=== PATIENT | female | born 1950 | race Caucasian/White ===

== ENCOUNTER 2018-01-14 07:07 | Day surgery (SDC) | payer MEDICARE, OTHER ==
[~2018-01-14] VITALS: Ht 170.2 cm; Wt 83.1 kg
[~2018-01-14 07:07] MED LIST: ATOR80 PO; Adult Low Dose81 MG PO; BUPROPION HCL ER PO; MIRT15ST PO; Omeprazole20 M1 PO; Prozac20 MG PO; TICA90TA PO; Toprol Xl25 MG PO
== END 2018-01-14 09:25 | disposition home or self-care (01) ==
LOC: ORSCSDS 07:07
PROVIDERS: Internal Medicine Gastroenterology
PROC: 0DB68ZX Excision of Stomach, Via Natural or Artificial Opening Endoscopic, Diagnostic (ICD-10-PCS; principal; 2018-01-14 08:45)
DX: K21.9 Gastro-esophageal reflux disease without esophagitis (principal); K20.9 Esophagitis, unspecified; K44.9 Diaphragmatic hernia without obstruction or gangrene; K31.9 Disease of stomach and duodenum, unspecified; I10 Essential (primary) hypertension; E78.5 Hyperlipidemia, unspecified; Z87.891 Personal history of nicotine dependence; Z79.82 Long term (current) use of aspirin; Z79.899 Other long term (current) drug therapy
CPT/HCPCS: 88305; 88342; J0330; J1980; J2405; J7120

== ENCOUNTER → 2018-05-03 | Outpatient (CLI) | payer MEDICARE, OTHER | END | disposition home or self-care (01) | LOC: LAB 14:45 → LAB SHORT 14:45 | DX: N39.0 Urinary tract infection, site not specified (principal) | CPT/HCPCS: 87077; 87086; 87186 ==

== ENCOUNTER → 2018-09-26 | Outpatient (CLI) | payer MEDICARE, OTHER | END | disposition home or self-care (01) | LOC: LAB SHORT 14:56 → LAB EV 14:56 | DX: N39.0 Urinary tract infection, site not specified (principal) | CPT/HCPCS: 87077; 87086; 87186 ==

== ENCOUNTER → 2019-06-21 | Outpatient (CLI) | payer MEDICARE, OTHER | END | disposition home or self-care (01) | LOC: LAB SHORT 15:10 → OLS 15:10 | DX: R30.9 Painful micturition, unspecified (principal) | CPT/HCPCS: 87086 ==

== ENCOUNTER → 2020-02-05 | Outpatient (CLI) | payer MEDICARE, OTHER | END | disposition home or self-care (01) | LOC: LAB SHORT 15:00 → LAB EV 15:00 | DX: N39.0 Urinary tract infection, site not specified (principal) | CPT/HCPCS: 87077; 87086; 87186 ==

== ENCOUNTER → 2020-06-21 | Outpatient (CLI) | payer MEDICARE, OTHER | END | disposition home or self-care (01) | LOC: LAB SHORT 17:36 → LAB EV 17:36 | DX: J01.90 Acute sinusitis, unspecified (principal); Z20.828 Contact with and (suspected) exposure to other viral communicable diseases | CPT/HCPCS: U0003 ==

== ENCOUNTER → 2021-04-04 | Outpatient (CLI) | payer MEDICARE, OTHER | END | disposition home or self-care (01) | LOC: LAB SHORT 19:45 → LAB 19:45 | DX: N39.0 Urinary tract infection, site not specified (principal) | CPT/HCPCS: 87077; 87086; 87186 ==

== ENCOUNTER → 2021-05-16 | Outpatient (CLI) | payer MEDICARE, OTHER | END | disposition home or self-care (01) | LOC: LAB 16:24 → LAB SHORT 16:24 | DX: N39.0 Urinary tract infection, site not specified (principal) | CPT/HCPCS: 87077; 87086; 87186 ==

== ENCOUNTER → 2021-07-24 | Outpatient (CLI) | payer MEDICARE, OTHER | END | disposition home or self-care (01) | LOC: LAB SHORT 17:13 → LAB 17:13 | DX: N39.0 Urinary tract infection, site not specified (principal) | CPT/HCPCS: 87077; 87086; 87186 ==

== ENCOUNTER 2021-10-06 10:42 | Inpatient (IN) | payer MEDICARE, OTHER ==
[~2021-10-06] VITALS: Ht 170.2 cm; Wt 74.9 kg
[2021-10-06 11:23] LABS: Alanine Aminotransfer (ALT/SGP 27 U/L (12-78); Albumin, Blood 2.5 g/dL (3.4-5.0); Albumin/Globulin Ratio 0.5 (0.8-1.8); Alk Phos 164 U/L (50-136); Anion Gap 10 mmol/L (6-16); Aspartate Aminotrans (AST/SGOT 58 U/L (12-37); Bilirubin, Total 0.7 mg/dL (0.1-1.0); Blood Urea Nitrogen 11 mg/dL (8-24); Bun/Creatinine Ratio 14.3 (12.0-20.0); CO2, Blood 24 mmol/L (21-32); Calcium, Blood 8.4 mg/dL (8.5-10.1); Chloride, Blood 107 mmol/L (98-108); Creatinine, Blood 0.77 mg/dL (0.40-1.00); Globulin, Blood 4.8 g/dL (2.2-4.0); Glomerular Filtration Rate >60 (60-); Glucose, Blood 119 mg/dL (70-99); Potassium, Blood 3.8 mmol/L (3.5-5.5); Sodium, Blood 141 mmol/L (136-145); Total Protein, Blood 7.3 g/dL (6.4-8.2); Troponin I 0.023 ng/mL (0.000-0.040)
[2021-10-06 11:34] LABS: BASOPHILS ABSOLUTE AUTO 0.04 K/mm3 (0.00-0.23); BASOPHILS PERCENT AUTO 0 % (0-2); EOSINOPHILS ABSOLUTE AUTO 0.09 K/mm3 (0.00-0.68); EOSINOPHILS PERCENT AUTO 1 % (0-6); Hematocrit 37.2 % (33.0-51.0); Hemoglobin 12.1 g/dL (11.5-16.0); IMMATURE GRAN ABSOLUTE AUTO 0.08 K/mm3 (0.00-0.10); IMMATURE GRAN PERCENT AUTO 1 % (0-1); LYMPHOCYTES ABSOLUTE AUTO 1.16 K/mm3 (0.84-5.20); LYMPHOCYTES PERCENT AUTO 11 % (21-46); MONOCYTES ABSOLUTE AUTO 0.74 K/mm3 (0.16-1.47); MONOCYTES PERCENT AUTO 7 % (4-13); Mean Corpuscular HGB 30.5 pg (26.0-34.0); Mean Corpuscular HGB Conc 32.5 g/dL (31.5-36.5); Mean Corpuscular Volume 94 fL (80-100); Mean Platelet Volume 9.7 fL (9.1-12.4); NEUTROPHILS ABSOLUTE AUTO 8.93 K/mm3 (1.96-9.15); NEUTROPHILS PERCENT AUTO 81 % (41-73); Platelet Count 352 K/mm3 (150-400); RDW Coefficient Variation 15.3 % (11.7-14.2); Red Blood Cell Count 3.97 M/mm3 (3.80-5.20); White Blood Cell Count 11.04 K/mm3 (4.00-11.30)
[2021-10-06 11:57] LABS: Influenza A, PCR NEGATIVE (NEGATIVE); Influenza B, PCR NEGATIVE (NEGATIVE); Resp Syncytial Virus, PCR NEGATIVE (NEGATIVE); SARS-Cov-2 (COVID-19) PCR, MMC NEGATIVE (NEGATIVE)
[2021-10-06] MEDS ORDERED: ASPI81CH PO (15:23)
[2021-10-06] MEDS ORDERED: ATORVASTATIN CA80 M1 PO (15:24)
[2021-10-06] MEDS ORDERED: WELLBUTRIN 300 MG PO (15:25)
[2021-10-06] MEDS ORDERED: FLUOXETINE HCL20 M1 PO (15:26)
[2021-10-06] MEDS ORDERED: METO25ER PO (15:27)
[2021-10-06] MEDS ORDERED: PANT40 PO (15:29)
[2021-10-06] MEDS ORDERED: CARAFATE1 GM PO (15:30)
[2021-10-06] MEDS ORDERED: ASPI325 PO (17:10)
--- NOTE | 2021-10-06 18:13 | NUR ---
2722 RECEIVED PT TO VIA JEAN FROM ER. PT ABLE TO TX SELF TO BED WITH SBA. RECEIVED REPORT FROM CALDERON LUCAS. PT TO ER WITH C/O SOB, N/V; MOSTLY D/T COUGHING EPISODES. PER REPORT, PT'S BIOX AT 82% COMING TO ER; PLACED ON 2L VIA NC. BIOX INCREASED TO 94-95%. PT UP TO BTHRM ONCE IN ER, BECOMING SOB ON RETURN. PT WITH STAGE 4 LUNG CA, RECEIVING TX. PT ADMITTED FOR HYPOXIA. A&O, PLEASANT AND CO-OP WITH CARE. TALKING ON PHONE WITH FAMILY AT THIS TIME. CALL LT IN REACH. ABLE TO MAKE NEEDS KNOWN.
--- NOTE | 2021-10-07 03:46 | NUR ---
SHIFT SUMMARY A/O X4. STAND BY ASSIST TO BATHROOM. VSS, REMAINS ON 2L NC. INCREASED SOB WITH MINIMAL ACTIVITY. TOLERATING PO INTAKE. VOIDING WELL. ANXIOUS WHEN AWAKE TO USE THE BATHROOM, BUT OTHERWISE RESTING COMFORTABLE. NO PAIN THIS SHIFT. WILL CONTINUE TO MONITOR AND REPORT TO ONCOMING RN.
[2021-10-07 07:31] LABS: BASOPHILS ABSOLUTE AUTO 0.05 K/mm3 (0.00-0.23); BASOPHILS PERCENT AUTO 1 % (0-2); EOSINOPHILS ABSOLUTE AUTO 0.13 K/mm3 (0.00-0.68); EOSINOPHILS PERCENT AUTO 1 % (0-6); Hematocrit 33.2 % (33.0-51.0); Hemoglobin 10.7 g/dL (11.5-16.0); IMMATURE GRAN PERCENT AUTO 1 % (0-1); LYMPHOCYTES ABSOLUTE AUTO 1.14 K/mm3 (0.84-5.20); LYMPHOCYTES PERCENT AUTO 11 % (21-46); MONOCYTES ABSOLUTE AUTO 0.62 K/mm3 (0.16-1.47); MONOCYTES PERCENT AUTO 6 % (4-13); Mean Corpuscular HGB 30.2 pg (26.0-34.0); Mean Corpuscular HGB Conc 32.2 g/dL (31.5-36.5); Mean Corpuscular Volume 94 fL (80-100); Mean Platelet Volume 9.5 fL (9.1-12.4); NEUTROPHILS ABSOLUTE AUTO 8.52 K/mm3 (1.96-9.15); NEUTROPHILS PERCENT AUTO 81 % (41-73); Platelet Count 287 K/mm3 (150-400); RDW Coefficient Variation 15.2 % (11.7-14.2); RDW Standard Deviation 52.5 fL (35.1-46.3); Red Blood Cell Count 3.54 M/mm3 (3.80-5.20); White Blood Cell Count 10.56 K/mm3 (4.00-11.30)
[2021-10-07 07:36] LABS: Albumin, Blood 2.3 g/dL (3.4-5.0); Anion Gap 9 mmol/L (6-16); Blood Urea Nitrogen 14 mg/dL (8-24); Bun/Creatinine Ratio 20.7 (12.0-20.0); CO2, Blood 23 mmol/L (21-32); Calcium, Blood 8.3 mg/dL (8.5-10.1); Chloride, Blood 106 mmol/L (98-108); Creatinine, Blood 0.68 mg/dL (0.40-1.00); Glomerular Filtration Rate >60 (60-); Glucose, Blood 158 mg/dL (70-99); Magnesium, Blood 2.4 mg/dL (1.6-2.4); Phosphorus, Blood 2.3 mg/dL (2.5-4.9); Potassium, Blood 4.1 mmol/L (3.5-5.5); Sodium, Blood 138 mmol/L (136-145)
--- NOTE | 2021-10-07 09:59 | NUR ---
Echocardiogram performed.
--- NOTE | 2021-10-07 12:14 | NUR ---
I went up to visit the patient in her [facility] room 301. She was currently receiving a breathing treatment but, was able to answer my questions. She currently lives alone in a fifth wheel, with 3 steps to the enterance. She states she is close with her neighbors and her neighbor, Charmaine Perez [phone] can be used as an emergency contact. Pt states Charmaine can also be contacted for discharge transportation. She states her neighbors also help with transportation if needed. Aurora was independent prior to admit and does not own any durable medical equipment. Her preference on home health is [facility]. She manages all her own medications and states she does not need assistance with ADLs prior to admit. Her SNF preference is [facility]. She does not have benefits. She also states her son can be contacted (Brodie [phone]) who lives in [place].
--- NOTE | 2021-10-07 12:19 | NUR ---
Per OT evaulation - discharge recommendation is home with/HH. PT yet to evaluate patient yet. See PT Note. I notified Yisel Stratton of patient's preference for [facility].
--- NOTE | 2021-10-07 16:54 | NUR ---
SHIFT SUMMARY PT IS A&O, PLEASANT AND CO-OP. SOB WITH EXERTION, BUT IMPROVED FROM ADMIT. PT HAS SOME HIGH ANXIETY AT TIMES, APART FROM ANY BREATHING ISSUES. UP TO BTHRM WITH SBA. DRINKING WELL. PICKY WITH MEALS, BUT LIKES ENSURES. RESTING QUIETLY THRU OUT THE DAY. ECHO DONE IN THIS AM. USES CALL LT APPROPRIATELY. ABLE TO MAKE NEEDS KNOWN.
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
--- NOTE | 2021-10-08 07:30 | NUR ---
ASSUMED CARE: PT RESTING QUIETLY IN BED, CURRENTLY ON 13L AT THIS TIME. SATTING LOW 90S.
[2021-10-08 08:35] LABS: BASOPHILS ABSOLUTE AUTO 0.04 K/mm3 (0.00-0.23); BASOPHILS PERCENT AUTO 0 % (0-2); EOSINOPHILS ABSOLUTE AUTO 0.01 K/mm3 (0.00-0.68); EOSINOPHILS PERCENT AUTO 0 % (0-6); Hematocrit 36.5 % (33.0-51.0); IMMATURE GRAN ABSOLUTE AUTO 0.11 K/mm3 (0.00-0.10); IMMATURE GRAN PERCENT AUTO 1 % (0-1); LYMPHOCYTES ABSOLUTE AUTO 0.94 K/mm3 (0.84-5.20); LYMPHOCYTES PERCENT AUTO 8 % (21-46); MONOCYTES ABSOLUTE AUTO 0.23 K/mm3 (0.16-1.47); MONOCYTES PERCENT AUTO 2 % (4-13); Mean Corpuscular HGB 30.7 pg (26.0-34.0); Mean Corpuscular HGB Conc 32.9 g/dL (31.5-36.5); Mean Corpuscular Volume 93 fL (80-100); Mean Platelet Volume 9.7 fL (9.1-12.4); NEUTROPHILS ABSOLUTE AUTO 10.16 K/mm3 (1.96-9.15); NEUTROPHILS PERCENT AUTO 88 % (41-73); NRBC ABSOLUTE 0.02 K/mm3 (0.00-0.02); NRBC Auto 0.2 /100 WBC (0.0-0.2); Platelet Count 297 K/mm3 (150-400); RDW Coefficient Variation 15.3 % (11.7-14.2); RDW Standard Deviation 52.7 fL (35.1-46.3); Red Blood Cell Count 3.91 M/mm3 (3.80-5.20); White Blood Cell Count 11.49 K/mm3 (4.00-11.30)
[2021-10-08 09:10] LABS: Magnesium, Blood 2.2 mg/dL (1.6-2.4)
[2021-10-08 09:11] LABS: Alanine Aminotransfer (ALT/SGP 24 U/L (12-78); Albumin, Blood 2.4 g/dL (3.4-5.0); Albumin/Globulin Ratio 0.6 (0.8-1.8); Alk Phos 185 U/L (50-136); Anion Gap 9 mmol/L (6-16); Aspartate Aminotrans (AST/SGOT 76 U/L (12-37); Bilirubin, Total 0.9 mg/dL (0.1-1.0); Blood Urea Nitrogen 19 mg/dL (8-24); Bun/Creatinine Ratio 21.7 (12.0-20.0); CO2, Blood 26 mmol/L (21-32); Calcium, Blood 8.4 mg/dL (8.5-10.1); Chloride, Blood 103 mmol/L (98-108); Creatinine, Blood 0.88 mg/dL (0.40-1.00); Globulin, Blood 3.9 g/dL (2.2-4.0); Glomerular Filtration Rate >60 (60-); Glucose, Blood 126 mg/dL (70-99); Potassium, Blood 4.5 mmol/L (3.5-5.5); Sodium, Blood 138 mmol/L (136-145); Total Protein, Blood 6.3 g/dL (6.4-8.2)
--- NOTE | 2021-10-08 09:30 | NUR ---
CONSUMER ELECTRONICS MERCHANDISER CALLED RN TO BEDSIDE DUE TO PT BEING ON 13L AND SATTING AT 88%. INCREASED O2 TO [address] WOO. SEE VERBAL ORDERS
[2021-10-08 09:33] LABS: Troponin I 0.528 ng/mL (0.000-0.040)
--- NOTE | 2021-10-08 10:30 | NUR ---
DR WOO REVIEWED LAB RESULTS AND CONTACTED CARDIOLOGY TO REVIEW RESULTS AND ORDERS AND TO GIVE RECOMMENDATIONS.
[2021-10-08 10:56] LABS: International Normalized Ratio 1.21; Prothrombin Time Results 12.5 Sec (9.7-11.5)
--- NOTE | 2021-10-08 12:14 | NUR ---
Received referral from nurse transitional care nurse (Danii Laureano) on 10/07/2021. Patient is to discharge with orders for home health and elected [facility]. Met with patient to further discuss the above. Patient is agreeable to the above. Discussed homebound status definition with patient. Patient verbalized understanding. Discussed what home health is vs what it is not (in home caregivers/housekeeping). Patient verbalized understanding. Discussed the next steps in the process of an initial assessment to determine frequency of visits. Again patient verbalized understanding. Offered a chance for patient to ask questions regarding the above of which there were none. At this time patient has no discharge orders entered. Will continue to monitor and follow for discharge. Yisel Stratton Referral Liaison
--- NOTE | 2021-10-08 13:00 | NUR ---
DR HASSAN CAME TO SEE PT AND DOES NOT FEEL THAT PT'S ISSUES ARE DIRECTLY CARDIAC AND MORE LIKELY DEMAND ISCHEMIA. STATES PT IS TOO SHORT OF BREATH FOR CARDIAC CATH TO BE COMPLETED AND WILL MEDICALLY MANAGE AT THIS TIME.
[2021-10-08 13:37] LABS: Source, Urine Clean Catch
[2021-10-08 13:42] LABS: Appearance, Urine Clear (Clear); Bilirubin, Urine Neg (Neg); Blood, Urine 1+ (Neg); Glucose Qualitative, Urine Neg (Neg); Ketones, Urine Neg (Neg); Leukocyte Esterase, Urine 3+ (Neg); Nitrite, Urine Neg (Neg); Protein, Urine 2+ (Neg); Urobilinogen, Urine NORM (Normal)
[2021-10-08 13:58] LABS: Color, Urine Pale Yellow (P-Yellow)
[2021-10-08 14:02] LABS: Bacteria Mod /hpf; Hyaline Casts 0-2 /lpf (0-2); Mucus Light (0-Heavy); Red Blood Cells, Urine 0-2 /hpf (0-2); Squamous Epithelial Cells Rare /hpf (Few)
--- NOTE | 2021-10-08 14:57 | NUR ---
Pt. in bed resting , prayed for her and blessed her
--- NOTE | 2021-10-08 17:07 | NUR ---
BELT REPAIRER CALLED RN AFTER GETTING PT UP TO BSC AND SHE DESATURATED TO 80% AND TOOK SEVERAL MINUTES TO COMPENSATE TO 85% AND THEN SEVERAL MORE MINUTES TO RECOVER TO 89%, CALL TO DR WOO TO LET HIM KNOW OF WORSENING STATUS WITH ORDER RECIEVED FOR TRANSFER TO PCU. PT TRANSFERRED VIA BED BY THIS RN AND JOB ESTIMATOR
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
[2021-10-08 22:46] LABS: Source, Urine Foley catheter
[2021-10-08 22:49] LABS: Bilirubin, Urine Neg (Neg); Blood, Urine 2+ (Neg); Glucose Qualitative, Urine Neg (Neg); Ketones, Urine Neg (Neg); Leukocyte Esterase, Urine 3+ (Neg); Nitrite, Urine Neg (Neg); Protein, Urine 2+ (Neg); Urobilinogen, Urine NORM (Normal)
[2021-10-08 22:55] LABS: Appearance, Urine Hazy (Clear); Color, Urine Yellow (P-Yellow)
[2021-10-08 22:56] LABS: Bacteria Mod /hpf; Red Blood Cells, Urine 0-2 /hpf (0-2); Squamous Epithelial Cells Few /hpf (Few); White Blood Cells, Urine TNTC /hpf (0-5)
--- NOTE | 2021-10-09 06:29 | NUR ---
SHIFT SUMMARY: PATIENT'S O2 TITRATED DOWN TO 7L AND MAINTAING SATS >94%. VS STABLE T/O SHIFT, DENIES SOB AND CHEST PAIN. PATIENT SLEEPS DEEP AND DIFFICULT TO AROUSE FOR ENGAGEMENT. SANCHEZ WAS PLACED FOR ACCURATE I/OS AND PRESERVE O2 SATURATION PATIENT WAS DESATTING <84% USING BEDPAN AND TOOK SEVERAL MINUTES TO RECOVER. CONSULTED WITH DR. PALOMINO RE: 1.01 TROPONIN; CONTINUE ON HEPARIN DRIP AND WAIT FOR HEART CONSULT. HEPARIN DRIP RUNNING AT 13 U/KG/HR PER PHARMACY. NO ADVERSE EVENTS THIS SHIFT. WILL REPORT TO DAY RN.
[2021-10-09 09:16] LABS: BASOPHILS ABSOLUTE AUTO 0.03 K/mm3 (0.00-0.23); BASOPHILS PERCENT AUTO 0 % (0-2); EOSINOPHILS ABSOLUTE AUTO 0.02 K/mm3 (0.00-0.68); EOSINOPHILS PERCENT AUTO 0 % (0-6); Hematocrit 32.7 % (33.0-51.0); Hemoglobin 10.5 g/dL (11.5-16.0); IMMATURE GRAN ABSOLUTE AUTO 0.12 K/mm3 (0.00-0.10); IMMATURE GRAN PERCENT AUTO 1 % (0-1); LYMPHOCYTES ABSOLUTE AUTO 1.29 K/mm3 (0.84-5.20); LYMPHOCYTES PERCENT AUTO 11 % (21-46); MONOCYTES ABSOLUTE AUTO 0.19 K/mm3 (0.16-1.47); MONOCYTES PERCENT AUTO 2 % (4-13); Mean Corpuscular HGB 30.3 pg (26.0-34.0); Mean Corpuscular HGB Conc 32.1 g/dL (31.5-36.5); Mean Corpuscular Volume 94 fL (80-100); Mean Platelet Volume 10.1 fL (9.1-12.4); NEUTROPHILS ABSOLUTE AUTO 10.15 K/mm3 (1.96-9.15); NEUTROPHILS PERCENT AUTO 86 % (41-73); Platelet Count 272 K/mm3 (150-400); RDW Coefficient Variation 15.4 % (11.7-14.2); RDW Standard Deviation 52.9 fL (35.1-46.3); Red Blood Cell Count 3.47 M/mm3 (3.80-5.20)
[2021-10-09 09:54] LABS: Albumin, Blood 2.1 g/dL (3.4-5.0); Anion Gap 12 mmol/L (6-16); Blood Urea Nitrogen 27 mg/dL (8-24); Bun/Creatinine Ratio 34.5 (12.0-20.0); CO2, Blood 23 mmol/L (21-32); Calcium, Blood 8.1 mg/dL (8.5-10.1); Chloride, Blood 106 mmol/L (98-108); Creatinine, Blood 0.78 mg/dL (0.40-1.00); Glomerular Filtration Rate >60 (60-); Glucose, Blood 185 mg/dL (70-99); Magnesium, Blood 2.6 mg/dL (1.6-2.4); Phosphorus, Blood 2.7 mg/dL (2.5-4.9); Potassium, Blood 3.7 mmol/L (3.5-5.5); Sodium, Blood 141 mmol/L (136-145)
[2021-10-09 13:19] LABS: Influenza A, PCR NEGATIVE (NEGATIVE); Influenza B, PCR NEGATIVE (NEGATIVE); Resp Syncytial Virus, PCR NEGATIVE (NEGATIVE); SARS-Cov-2 (COVID-19) PCR, MMC NEGATIVE (NEGATIVE)
--- NOTE | 2021-10-09 13:52 | NUR ---
PATIENT ALERT AND ORIENTED X4. NEURO WNL. ABLE TO TURN SELF IN BED. TELE SHOWING SINUS RHYTHM WITH HR 80'S. DENIES CHEST PAIN/PRESSURE. VITAL SIGNS STABLE. BP ON SOFTER SIDE, SOME AM MEDS HELD PER DOCTOR. ON 9-12L HIGH FLOW NASAL CANNULA SATING LOW-MID 90'S. ABLE TO TITRATE DOWN WHEN SLEEPING. PATIENT DESATING WITH TALKING AND MOVEMENT IN BED. SPUTUM SAMPLE COLLECTED. HARSH BARKY COUGH, PRODUCING SMALL AMOUNTS OF SPUTUM. CHLORASEPTIC ORDERD FOR SORE THROAT. DENIES ABDOMINAL PAIN/NAUSEA. SANCHEZ CATH IN PLACE DRAINING TO GRAVITY. EATING WELL. TAKING PILLS WHOLE WITH WATER OR MILK. DENIES NEEDS AT THIS TIME. HEPARIN INFUSING. ANTIBIOTICS INFUSED. CALL LIGHT IN REACH. PASTORAL CARE IN ROOM VISITING. WILL CONTINUE TO MONITOR.
--- NOTE | 2021-10-09 14:35 | NUR ---
Patient is sitting up in bed and alert. Patient immediately shares about her stage 4 lung cancer diagnosis and her current plan of care. Patient then reherses the events of the last 3yrs that culminated in the of her spouse on 05/21/21. She is tearful at times and talks about how lost she feels. She is seeing a therapist at [facility] and but has only had one visit so far and so she expresses her need for continued support. I normalize her experience and provide therpaeutic listening, gentle hiv counselor and grief support. Patient asked if I could return again to discuss her journey with cancer. I will continue to assist patient with her emotional/spiritual issues and her bereavement process.
--- NOTE | 2021-10-09 17:54 | NUR ---
SHIFT SUMMARY: NO ACUTE CHANGES. SEE PREVIOUS NOTES. TELE REMAINS UNCHANGED. ON 9-12L NASAL CANNULA DEPENDING ON WHAT PATIENT IS DOING. ABLE TO TITRATE DOWN WHEN SLEEPING/RESTING. HARSH BARKY COUGH CONTINUES. HEPARIN DRIP INFUSING. EATING DINNER AT THIS TIME. VITAL SIGNS REMAIN STABLE. WILL REPORT OFF TO ONCOMING RN.
--- NOTE | 2021-10-10 05:27 | NUR ---
SHIFT SUMMARY: PATIENT HAS MAINTAINED O2 SATURATIONS >94% THROUGHOUT SHIFT. STILL DYSPNEIC ON EXERTION (EG, WHEN TALKING) BUT STATES SHE FEELS "MORE HUMAN TODAY." PATIENT PREFERS TO TAKE HER MEDS WITH MILK AND REPORTS SINCE WE HAVE BEEN GIVING HER THE SUCRALFATE SHE HAS NOT HAD ANY STOMACH PAIN. BPS MUST BE TAKEN ON RIGHT ARM - RADIATION HX ON LEFT ARM. DENIES CHEST PAIN, NO ADVERSE EVENTS THIS SHIFT. WILL CONTINUE TO MONITOR AND REPORT TO ONCOMING RN.
--- NOTE | 2021-10-10 07:20 | NUR ---
CARE ASSUMPTION PATIENT IS ALERT AND ORIENTATED X4. VSS. SPO2 >90% ON 11L NC. PATIENT REPORTS NO HEADACHE, CHEST PAIN, OR SHORTNESS OF BREATH. PATIENT REPORTS IRRIATED THROAT AND NUMBNESS TO HER FINGER TIPS. PATIENT HAS A SOFT VOICE, THAT STATES IS NORMAL. PATIENT HAS HERPAIN INFUSING AT 13U/KG/HR. SANCHEZ CATH IS IN PLACE DRAINING WITH GRAVITY. SEE SHIFT ASSESSMENT FOR ASSESSMENT FINDINGS. CALL LIGHT WITHIN REACH AND BED IN LOWEST POSITION. WILL CONTINUE TO MONITOR AND PROVIDE CARE.
--- NOTE | 2021-10-10 17:11 | NUR ---
SHIFT SUMMARY NO ACUTE CHANGES THIS SHIFT. VSS. PATIENT A/OX4. PATIENT REPORTS NO CHEST PAIN/PRESSURE, PAIN, OR SHORTNESS OF BREATH. PATIENT CHANGES POSITION INDEPENDENTLY IN BED AND CALLS APPROPRIATELY. CALL LIGHT WITHIN REACH AND BED IN LOWEST POSITION. WILL CONTINUE TO MONITOR AND PROVIDE CARE UNTIL HAND OFF WITH NEXT SHIFT.
[2021-10-11 03:40] LABS: Hematocrit 29.9 % (33.0-51.0); Hemoglobin 9.3 g/dL (11.5-16.0); Mean Corpuscular HGB 29.6 pg (26.0-34.0); Mean Corpuscular HGB Conc 31.1 g/dL (31.5-36.5); Mean Corpuscular Volume 95 fL (80-100); Mean Platelet Volume 10.4 fL (9.1-12.4); NRBC ABSOLUTE 0.05 K/mm3 (0.00-0.02); NRBC Auto 0.3 /100 WBC (0.0-0.2); Platelet Count 272 K/mm3 (150-400); RDW Coefficient Variation 15.3 % (11.7-14.2); RDW Standard Deviation 52.9 fL (35.1-46.3); Red Blood Cell Count 3.14 M/mm3 (3.80-5.20); White Blood Cell Count 16.51 K/mm3 (4.00-11.30)
[2021-10-11 03:57] LABS: Alanine Aminotransfer (ALT/SGP 28 U/L (12-78); Albumin, Blood 1.9 g/dL (3.4-5.0); Albumin/Globulin Ratio 0.5 (0.8-1.8); Alk Phos 223 U/L (50-136); Anion Gap 5 mmol/L (6-16); Aspartate Aminotrans (AST/SGOT 41 U/L (12-37); Bilirubin, Total 0.3 mg/dL (0.1-1.0); Blood Urea Nitrogen 39 mg/dL (8-24); Bun/Creatinine Ratio 50.3 (12.0-20.0); CO2, Blood 30 mmol/L (21-32); Chloride, Blood 105 mmol/L (98-108); Creatinine, Blood 0.78 mg/dL (0.40-1.00); Globulin, Blood 4.2 g/dL (2.2-4.0); Glomerular Filtration Rate >60 (60-); Glucose, Blood 152 mg/dL (70-99); Magnesium, Blood 2.2 mg/dL (1.6-2.4); Phosphorus, Blood 2.9 mg/dL (2.5-4.9); Potassium, Blood 4.4 mmol/L (3.5-5.5); Sodium, Blood 140 mmol/L (136-145); Total Protein, Blood 6.1 g/dL (6.4-8.2)
[2021-10-11 04:11] LABS: BAND PERCENT MAN 10 % (0-8); BASOPHILS PERCENT MAN 0 % (0-2); EOSINOPHILS PERCENT MAN 0 % (0-6); LYMPHOCYTES ABSOLUTE MAN 2.31 K/mm3 (0.84-5.20); LYMPHOCYTES PERCENT MAN 14 % (21-46); METAMYELOCYTE ABSOLUTE MAN 0.49 K/mm3 (0.00-0.00); METAMYELOCYTE PERCENT MAN 3 % (0-0); MONOCYTES ABSOLUTE MAN 0.66 K/mm3 (0.16-1.47); MONOCYTES PERCENT MAN 4 % (4-13); MYELOCYTE ABSOLUTE MAN 0.49 K/mm3 (0.00-0.00); MYELOCYTE PERCENT MAN 3 % (0-0); NEUTROPHILS ABSOLUTE MAN 12.54 K/mm3 (1.96-9.15); SEG NEUTROPHILS PERCENT MAN 66 % (41-73); TOTAL CELLS COUNTED 100
--- NOTE | 2021-10-11 05:21 | NUR ---
SHIFT SUMMARY PT ALERT AND ORIENTED X4. HR SR. BP STABLE. AT REST MAINTAINING SATS OVER 92% ON 8L. WILL DESAT WITH COUGHING AND ACTIVITY INTO THE LOW 80'S. SATS WILL NORMALIZE WHEN BACK TO 11L NC. SANCHEZ IN PLACE DRAINING YELLOW URINE TO GRAVITY. HEPARIN GTT INFUSING. PT IN BED RESTING WITH CALL ALARM AT SIDE. WILL CONTINUE TO MONITOR UNTIL REPORT GIVEN TO DAYSHIFT RN
[2021-10-11 12:53] LABS: Adenovirus Not Detected (NOT DETECT); Bordetella pertussis Not Detected (NOT DETECT); Chlamydophila pneumoniae Not Detected (NOT DETECT); Coronavirus 229E Not Detected (NOT DETECT); Coronavirus HKU1 Not Detected (NOT DETECT); Coronavirus NL63 Not Detected (NOT DETECT); Coronavirus OC43 Not Detected (NOT DETECT); Human Metapneumovirus Not Detected (NOT DETECT); Human Rhinovirus/Enterovirus Not Detected (NOT DETECT); Influenza A/2009-H1 Not Detected (NOT DETECT); Influenza A/H1 Not Detected (NOT DETECT); Influenza A/H3 Not Detected (NOT DETECT); Influenza B Not Detected (NOT DETECT); Mycoplasma pneumoniae Not Detected (NOT DETECT); Parainfluenza Virus 1 Not Detected (NOT DETECT); Parainfluenza Virus 2 Not Detected (NOT DETECT); Parainfluenza Virus 3 Not Detected (NOT DETECT); Parainfluenza Virus 4 Not Detected (NOT DETECT); Respiratory Syncytial Virus Not Detected (NOT DETECT); SARS-Cov-2 (COVID-19), BioFire Not Detected (NOT DETECT)
[2021-10-11 13:52] LABS: Hematocrit 30.8 % (33.0-51.0); Hemoglobin 9.9 g/dL (11.5-16.0); Mean Corpuscular HGB 30.8 pg (26.0-34.0); Mean Corpuscular HGB Conc 32.1 g/dL (31.5-36.5); Mean Corpuscular Volume 96 fL (80-100); Mean Platelet Volume 10.2 fL (9.1-12.4); NRBC ABSOLUTE 0.14 K/mm3 (0.00-0.02); NRBC Auto 0.8 /100 WBC (0.0-0.2); Platelet Count 302 K/mm3 (150-400); RDW Coefficient Variation 15.4 % (11.7-14.2); RDW Standard Deviation 53.9 fL (35.1-46.3); Red Blood Cell Count 3.21 M/mm3 (3.80-5.20); White Blood Cell Count 16.94 K/mm3 (4.00-11.30)
[2021-10-11 14:29] LABS: BAND PERCENT MAN 3 % (0-8); BASOPHILS PERCENT MAN 0 % (0-2); EOSINOPHILS PERCENT MAN 0 % (0-6); LYMPHOCYTES ABSOLUTE MAN 2.03 K/mm3 (0.84-5.20); LYMPHOCYTES PERCENT MAN 12 % (21-46); MONOCYTES ABSOLUTE MAN 1.52 K/mm3 (0.16-1.47); MONOCYTES PERCENT MAN 9 % (4-13); MYELOCYTE ABSOLUTE MAN 0.33 K/mm3 (0.00-0.00); MYELOCYTE PERCENT MAN 2 % (0-0); NEUTROPHILS ABSOLUTE MAN 13.04 K/mm3 (1.96-9.15); SEG NEUTROPHILS PERCENT MAN 74 % (41-73); TOTAL CELLS COUNTED 100
--- NOTE | 2021-10-11 18:08 | NUR ---
UNABLE TO WEAN SUPPLEMENTAL O2- CONTINUES TO HAVE MORRISSEY, REQUIRES LONG RECOVERY. ABX ADDED. HEPARIN GTT MAINTAINED- CONTINUES TO DENY CP. WORKED WITH PT- TOLERATED WELL, SEE NOTES. FREQUENT ROUNDS TO ENSURE PT SAFETY. ENCOURAGED REPOSITIONING OFTEN TO PREVENT PRESSURE ULCERS, PT VERBALIZED UNDERSTANDING. PT IN NO APPARENT DISTRESS AT THIS TIME. WILL CONTINUE TO MONITOR UNTIL TRANSFER OF CARE.
[2021-10-12 06:06] LABS: Hematocrit 32.5 % (33.0-51.0); Hemoglobin 10.2 g/dL (11.5-16.0); Mean Corpuscular HGB 30.5 pg (26.0-34.0); Mean Corpuscular HGB Conc 31.4 g/dL (31.5-36.5); Mean Corpuscular Volume 97 fL (80-100); Mean Platelet Volume 10.2 fL (9.1-12.4); NRBC ABSOLUTE 0.13 K/mm3 (0.00-0.02); NRBC Auto 0.8 /100 WBC (0.0-0.2); Platelet Count 299 K/mm3 (150-400); RDW Coefficient Variation 15.5 % (11.7-14.2); RDW Standard Deviation 55.8 fL (35.1-46.3); Red Blood Cell Count 3.34 M/mm3 (3.80-5.20); White Blood Cell Count 16.94 K/mm3 (4.00-11.30)
[2021-10-12 06:29] LABS: Bun/Creatinine Ratio 42.4 (12.0-20.0); Calcium, Blood 8.6 mg/dL (8.5-10.1); Creatinine, Blood 0.97 mg/dL (0.40-1.00); Potassium, Blood 4.5 mmol/L (3.5-5.5)
[2021-10-12 06:58] LABS: BAND PERCENT MAN 3 % (0-8); BASOPHILS PERCENT MAN 0 % (0-2); EOSINOPHILS ABSOLUTE MAN 0.33 K/mm3 (0.00-0.68); EOSINOPHILS PERCENT MAN 2 % (0-6); LYMPHOCYTES ABSOLUTE MAN 2.71 K/mm3 (0.84-5.20); LYMPHOCYTES PERCENT MAN 16 % (21-46); MONOCYTES ABSOLUTE MAN 1.18 K/mm3 (0.16-1.47); MONOCYTES PERCENT MAN 7 % (4-13); MYELOCYTE ABSOLUTE MAN 0.33 K/mm3 (0.00-0.00); MYELOCYTE PERCENT MAN 2 % (0-0); NEUTROPHILS ABSOLUTE MAN 12.36 K/mm3 (1.96-9.15); SEG NEUTROPHILS PERCENT MAN 70 % (41-73); TOTAL CELLS COUNTED 100
--- NOTE | 2021-10-12 07:41 | NUR ---
SHIFT SUMMARY PT ALERT AND ORIENTED X4. HR 70-80'S NSR. BP STABLE. ON 8-11L HIGH KIN NC MAINTAINING SATS OVER 92% AT REST. DESATS TO 80% WHILE COUGHING OR WITH EXERTION. HEP GTT INFUSING. SANCHEZ DRAINING YELLOW URINE TO GRAVITY. C/O SORE THROAT. IN BED RESTING WITH CALL ALARM AT SIDE.
--- NOTE | 2021-10-12 18:45 | NUR ---
END OF SHIFT: HOOD HAD A LINEN CHANGE BED BATH, REPOSITIONED OFTEN, STRONG COUGH, WHICH WE MEDICATED WITH COUGH SYRUP AND TESSALON PERLES WHICH HELPED TREMENDOUSELY. DENIES CHEST PAIN, HEPARIN WAS SWITCHED TO LOVENOX THIS PM. FIRST DOSE GIVEN AT 1845. SR THROUGH THE DAY. AWAITING BREATHING TO IMPROVE FOR ANGIO WAS THE PLAN DR. BAPTISTE INFORMED ME. LUNGS COARSE, LOTS OF SPUTUM, CX SENT THIS AM. MOUTH MAY HAVE YEAST OF SOME SORT WILL ASK HOSPITALIST IN THE MORNING TO VERIFY. WILL CONTINUE TO MONITOR
[2021-10-12 23:16] LABS: Vancomycin, Trough 26.4 ug/mL (5.0-10.0)
[2021-10-13 03:48] LABS: Mean Corpuscular HGB 30.6 pg (26.0-34.0); Mean Corpuscular Volume 99 fL (80-100); Mean Platelet Volume 10.4 fL (9.1-12.4); NRBC ABSOLUTE 0.07 K/mm3 (0.00-0.02); NRBC Auto 0.5 /100 WBC (0.0-0.2); Platelet Count 262 K/mm3 (150-400); RDW Coefficient Variation 15.8 % (11.7-14.2); RDW Standard Deviation 55.7 fL (35.1-46.3); Red Blood Cell Count 2.94 M/mm3 (3.80-5.20); White Blood Cell Count 14.69 K/mm3 (4.00-11.30)
[2021-10-13 04:09] LABS: Bun/Creatinine Ratio 39.7 (12.0-20.0); Calcium, Blood 7.4 mg/dL (8.5-10.1); Creatinine, Blood 0.93 mg/dL (0.40-1.00); Potassium, Blood 4.5 mmol/L (3.5-5.5)
[2021-10-13 04:11] LABS: BAND PERCENT MAN 7 % (0-8); BASOPHILS PERCENT MAN 0 % (0-2); EOSINOPHILS PERCENT MAN 0 % (0-6); LYMPHOCYTES ABSOLUTE MAN 1.46 K/mm3 (0.84-5.20); LYMPHOCYTES PERCENT MAN 10 % (21-46); METAMYELOCYTE ABSOLUTE MAN 0.14 K/mm3 (0.00-0.00); METAMYELOCYTE PERCENT MAN 1 % (0-0); MONOCYTES ABSOLUTE MAN 0.88 K/mm3 (0.16-1.47); MONOCYTES PERCENT MAN 6 % (4-13); MYELOCYTE ABSOLUTE MAN 0.29 K/mm3 (0.00-0.00); MYELOCYTE PERCENT MAN 2 % (0-0); NEUTROPHILS ABSOLUTE MAN 11.89 K/mm3 (1.96-9.15); SEG NEUTROPHILS PERCENT MAN 74 % (41-73); TOTAL CELLS COUNTED 100
--- NOTE | 2021-10-13 05:16 | NUR ---
SHIFT SUMMARY PT ALERT AND ORIENTED X4. BP STABLE. HR NSR. O2 SATS OVER 95% ON 5L NC AT REST. DESATS WHEN COUGHING, O2 SATS RETURN WITH TITRATION UP TO 11L. C/O 4/10 UPPER THIGH PAIN, RELIEVED PER EMAR. VANCO TROUGH HIGH AT 26.4, PHARMACY AWARE, MIDNIGHT VANCO HELD. IN BED SLEEPING WITH CALL ALARM AT SIDE, WILL CONTINUE TO MONITOR UNTIL REPORT GIVEN TO DAYSHIFT RN
--- NOTE | 2021-10-13 07:30 | NUR ---
PATIENT GAVE CONSENT TO PROCESSING INSPECTOR CARE 10/13/2021.
--- NOTE | 2021-10-13 08:17 | NUR ---
Pt ref bath today. Said she had one yesterday and is to tired to have one to today. Did change gown and top linen. Pt ref bottom linen to be changed. Pt destated to [id number] with the little movement it took to clean up after she spilled some breakfast. securities and real estate director in room helping.
--- NOTE | 2021-10-13 12:30 | NUR ---
PATIENT WAS MOVED TO BSC, DID NOT DESATURATE, DID BECOME NAUSEATED, SOME LIQUID VOMIT MINIMAL, HOWEVER, DID JUST ADMINISTER TYLENOL AND ZITHROMAX, PILLS DID NOT SEEM TO BE IN VOMIT. WILL CONTINUE TO MONITOR.
--- NOTE | 2021-10-13 12:34 | NUR ---
UPON FURTHER INSPECTION, TWO WHITE PILLS MOST LIKELY ONE DOSE OF ZITHROMAX, AND ONE OF TYLENOL, WILL NOT PULL MORE SHE IS NAUSEATED AT THIS TIME. WILL CONTINUE TO MONITOR
[2021-10-13 13:29] LABS: Vancomycin, Random 17.3 ug/mL
--- NOTE | 2021-10-13 13:50 | NUR ---
Pt is lying in bed when I walked in and greeted , Pt. reports to be doing much better , encouraged pt. and offered prayers and spiritual support.
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
--- NOTE | 2021-10-13 16:44 | NUR ---
PT WAS ADMITTED FOR HYPOXIA & SOB FOR SUSPECTED PNEUMONIA. NSTEMI WAS OBSERVED. PT IS DNR. SHE HAS LUNG CANCER THAT HAS METASTISIZED TO THE BONE. VS ARE STABLE AND SHE IS SATTING AT 95% ON 4.5L NC. PT HAS TROUBLE SPEAKING AND DESATS W/ EXERTION. PT IS NOW ABLE TO MOVE TO THE BEDSIDE COMMODE WITH MINIMAL ASSISTANCE. OCCASIONALLY DESATS ON 5L TO 89%. SHE HAS NOT HAD A BM SINCE 10/11. PT DENIES CHEST PAIN. SANCHEZ HAS BEEN DRAINING TO GRAVITY. RHONCI NOTED ON RLL.
--- NOTE | 2021-10-13 18:25 | NUR ---
END OF SHIFT SUMMARY: PATIENT AGREEABLE TO [facility]. PATIENT FROM THE PREVIOUS DAY HAS HAD A DECREASE IN OXYGEN DEMAND, INCREASED STRENGTH SHE WAS ABLE TO TRANSFER TO BSC MULTIPLE TIMES TODAY WITH MINIMAL DESATURATION. WAS AT 5L VIA NC, NOW 4.5 WITH DECREASED DESATURATION. PATIENT IS RECIEVING TYSON EUGENE FOR PULMINARY INFILTRATES. CALLED DR GANDHI LAST CARDIOLIST TO EVALUATE ON THE , ESPECIALLY WITH DECREASED OXYGEN NEED, POTENTIAL CANIDATE FOR ANGIO. PATINET DENIES CHEST PAIN, WAS REPOSITIONED OFTEN. PT/OT DECLINED DUE TO FEELING TIRED. WILL CONTINUE TO MONITOR.
--- NOTE | 2021-10-14 06:35 | NUR ---
SHIFT SUMMARY PATIENT ALERT AND ORIENTED x4 THIS SHIFT. VSS. PATIENT REMAINS ON 7-8L NC THIS SHIFT WITH O2 SATURATION ABOVE 90%. PATIENT DESATS WITH ACTIVITY/TURNS BUT RECOVERS QUICKLY. DENIES CHEST PAIN. PATIENT HAD 2 EPISODES OF WATERY EMESIS AFTER DRINKING A LARGE AMOUNT OF WATER. MEDICATED PER EMAR FOR PAIN. SLEPT OFF AND ON DURING THE NIGHT. NO OTHER SIGNIFICANT CHANGES TO PATIENT THIS SHIFT. WILL REPORT TO DAY SHIFT RN.
--- NOTE | 2021-10-14 14:12 | NUR ---
Pt. lying in bed she reports doing fine offered prayers for the pt.
--- NOTE | 2021-10-14 14:32 | NUR ---
Pt resting in bed upon arrival. Pt reports 8/10 pain in her right side. Pt reports heat has been beneficial. Listened as Pt reports losing her due to COVID-19 and remembers this RN helping her through his dying process. Offered therapeutic listening as Pt reports having 2 children who live out of state. Pt reports living in a fifth wheel trailer in [place]. Reviewed therapy's notes and recommendations. Discussed the importance of consideration of needing caregiver support when she returns home. Discussed considering finacnces to determine if she can afford caregivers and consideration of applying for APD. Pt reports currently receiving immunotherapy for her cancer. Discussed the importance of having routine conversations with oncologist regarding disease process and having a plan for the future. Continued therapeutic listening and answered questions. Pt expresses appreciation and reports no other concerns at this time. Spoke with Primary RN Estephanie and relayed Pt's pain. Palliative Care will remain available.
--- NOTE | 2021-10-14 15:43 | NUR ---
PT PROVIDED ORAL CONSENT FOR THIS BRAND COMMUNICATIONS MANAGER TO PROVIDE CARE
--- NOTE | 2021-10-14 18:43 | NUR ---
SUMMARY: Patient is here with pneumonia and possible NSTEMI. She had a great day. I was able to titrate her oxygen from 7l down to 3l via NC. She was up and out of bed to the chair this morning. VSS T/O the shift. Patient had speech therapy come by to see her, she passed at the recommendation she pause between drinks when using a straw. No acute changes this shift. Will report to oncoming RN.
[2021-10-15 03:17] LABS: Hematocrit 23.5 % (33.0-51.0); Hemoglobin 7.5 g/dL (11.5-16.0); Mean Corpuscular HGB Conc 31.9 g/dL (31.5-36.5); Mean Corpuscular Volume 97 fL (80-100); Mean Platelet Volume 10.5 fL (9.1-12.4); NRBC ABSOLUTE 0.21 K/mm3 (0.00-0.02); NRBC Auto 1.1 /100 WBC (0.0-0.2); Platelet Count 281 K/mm3 (150-400); RDW Coefficient Variation 16.9 % (11.7-14.2); RDW Standard Deviation 53.1 fL (35.1-46.3); Red Blood Cell Count 2.42 M/mm3 (3.80-5.20); White Blood Cell Count 19.15 K/mm3 (4.00-11.30)
[2021-10-15 03:40] LABS: Bun/Creatinine Ratio 30.7 (12.0-20.0); Calcium, Blood 6.7 mg/dL (8.5-10.1); Creatinine, Blood 2.18 mg/dL (0.40-1.00); Potassium, Blood 4.3 mmol/L (3.5-5.5)
[2021-10-15 04:28] LABS: BASOPHILS PERCENT MAN 0 % (0-2); EOSINOPHILS PERCENT MAN 0 % (0-6); LYMPHOCYTES ABSOLUTE MAN 0.95 K/mm3 (0.84-5.20); LYMPHOCYTES PERCENT MAN 5 % (21-46); MONOCYTES ABSOLUTE MAN 0.57 K/mm3 (0.16-1.47); MONOCYTES PERCENT MAN 3 % (4-13); MYELOCYTE ABSOLUTE MAN 0.57 K/mm3 (0.00-0.00); MYELOCYTE PERCENT MAN 3 % (0-0); SEG NEUTROPHILS PERCENT MAN 78 % (41-73); TOTAL CELLS COUNTED 100
[2021-10-15 04:29] LABS: BAND PERCENT MAN 7 % (0-8); METAMYELOCYTE ABSOLUTE MAN 0.76 K/mm3 (0.00-0.00); METAMYELOCYTE PERCENT MAN 4 % (0-0); NEUTROPHILS ABSOLUTE MAN 16.27 K/mm3 (1.96-9.15); PLASMA CELLS PERCENT MAN 0 % (0-0)
--- NOTE | 2021-10-15 05:45 | NUR ---
SHIFT SUMMARY PATIENT ALERT AND ORIENTED X4 T/O SHIFT. VSS. PATIENT REMAINS ON 4-5L NC WITH O2 SATURATION ABOVE 90%. PATIENT DESATS TO MID 80s WITCH ACTIVITY OR WHEN OXYGEN IS OUT OF HER NOSE, SHE IS ABLE TO RECOVER IN A TIMELY MANNER WITH NO TITRATIONS TO OXYGEN. SANCHEZ IN PLACE DRAINING DARK YELLOW URINE. ANXIOUS ABOUT DISCHARGE AND THE HELP SHE MAY NEED UPON DISCHARGE, WILL RELAY THIS TO DAY SHIFT RN. NO OTHER SIGNIFICANT CHANGES. WILL REPORT TO ONCOMING RN.
--- NOTE | 2021-10-15 11:44 | NUR ---
Pt resting in bed and states not feeling well. Pt's voice is quiet, coarse, and she struggles speaking this AM. Pt agreeable for this RN to visit a little bit later in hopes she is feeling better for a visit. Spoke with Primary RN and Dr Lynn and discussed case. Plan to D/C antibiotics for now. Palliative Care will remain available.
--- NOTE | 2021-10-15 11:54 | NUR ---
Spiritual care visit conducted. Pt immediately tells me that she is having a very rough day and can't talks well (pt has breathing cannula in her mouth). I provide a prayer and commit to keeping her in my prayers. Patient gives me a smile and two thumbs up. I will continue to remain available to patient and family.
--- NOTE | 2021-10-15 18:41 | NUR ---
END OF SHIFT: PATINET REMAINS UNCHAGED WITH LITTLE CHANGE IN MENTATION, DID SPEAK A FEW INCOMPREHENSIBLE WORDS, BUT NOTHING MORE. PATIENT WAS GIVEN 2 BAGS OF 1/2NS FROM NIGHT TO THE END OF DAY. DUE TO HYPONATREMIA. PATIENT FAILED SPEECH, HAS BEEN NPO FOR QUITE SOME TIME, AND FAMILY ENDORSES PATIENT DESIRE TO NOT HAVE A FEEDING TUBE. Q2 TURNS BY MYSELF AND OR COMPUTATIONAL SCIENTIST. PATIENT RIGID, AND RESISTANT TO MOVEMENT. CONDOM CATH IN PLACE, WITH GOOD OUTPUT, CBG LAST WAS 147. NO NEED FOR Q6 COVERAGE. STILL HAVING CAMILLE MOVEMENTS, PROVIDER ENDORSED NEGATIVE MRI.
--- NOTE | 2021-10-15 18:47 | NUR ---
END OF SHIFT SUMMARY: PATIENT THIS AM IS FEELING WORSE IN THE LAST COUPLE DAYS THAT I HAD THE PATINET. GFR DECREASED FROM 59 TO 22, HGB DROPPED TO 7.[address] GARRISON PLAN OF CARE IS TO STOP VANCO AND ZOSYN AND BELIVES IT IS RELATED TO STAGE IV OF THE LUNG. ALSO HISTORY OF PULMONARY FIBROSIS AND POTENTALLY PNA, O2 DEMAND HAS DECREASED DEPSITE THE ABOVE, DENIES CHEST PAIN, WAS NAUSEATED THIS AM AND INFORMED M AND OK TO HOLD MORNING MEDS, WHEN THIS EVENING PATIENT FEELING BETTER WAS ABLE TO TAKE CERTAIN MEDS APPROVED BY M PATIENT IS FEELING MILDY BETTER THAN AM, SANCHEZ STIL DRAINING TO GRAVITY, BLADDER TRAINING PREFOMRED THROUGH THE DAY.
[2021-10-16 03:49] LABS: Hematocrit 22.6 % (33.0-51.0); Hemoglobin 7.2 g/dL (11.5-16.0); Mean Corpuscular HGB 31.2 pg (26.0-34.0); Mean Corpuscular HGB Conc 31.9 g/dL (31.5-36.5); Mean Corpuscular Volume 98 fL (80-100); Mean Platelet Volume 10.3 fL (9.1-12.4); NRBC ABSOLUTE 0.31 K/mm3 (0.00-0.02); NRBC Auto 1.6 /100 WBC (0.0-0.2); Platelet Count 293 K/mm3 (150-400); RDW Coefficient Variation 17.9 % (11.7-14.2); RDW Standard Deviation 54.3 fL (35.1-46.3); Red Blood Cell Count 2.31 M/mm3 (3.80-5.20)
[2021-10-16 04:27] LABS: Bun/Creatinine Ratio 30.4 (12.0-20.0); Calcium, Blood 6.2 mg/dL (8.5-10.1); Creatinine, Blood 2.47 mg/dL (0.40-1.00); Potassium, Blood 3.6 mmol/L (3.5-5.5)
--- NOTE | 2021-10-16 05:27 | NUR ---
SHIFT SUMMARY PATIENT FOUND TO BE A PLESANT LADY WHO IS A&OX4 WITH SOME GENERALIZED WEAKNESS.TURNS SELF WELL IN BED. VSS. ON 2-3L NC SATING LOW 90'S. SOME DYSPNEA ON EXERTION. PRODUCTIVE COUGH AT TIMES BUT DENIED NEED FOR PRN COUGH MEDS. NSR IN THE 70'S ON THE MONITOR. NO CP. TOLERATING REGULAR DIET WITH NO NAUSEA THROUGHOUT SHIFT. SANCHEZ PATENT DRAINING TO GRAVITY WITH GOOD OUPUT . NO PAIN OR DISTRESS NOTED UPON ASSESSMENT. KIDNEY NUMBERS STILL INCREASING PER AM LABS. NO ACUTE CONCERNS AT THIS TIME. WILL CONTINUE PLAN OF CARE UNTIL REPORT GIVEN TO HONEY LUCAS.
[2021-10-16 06:25] LABS: BAND PERCENT MAN 4 % (0-8); BASOPHILS PERCENT MAN 0 % (0-2); EOSINOPHILS ABSOLUTE MAN 0.38 K/mm3 (0.00-0.68); EOSINOPHILS PERCENT MAN 2 % (0-6); LYMPHOCYTES ABSOLUTE MAN 1.52 K/mm3 (0.84-5.20); LYMPHOCYTES PERCENT MAN 8 % (21-46); METAMYELOCYTE ABSOLUTE MAN 0.38 K/mm3 (0.00-0.00); METAMYELOCYTE PERCENT MAN 2 % (0-0); MONOCYTES PERCENT MAN 0 % (4-13); MYELOCYTE ABSOLUTE MAN 0.38 K/mm3 (0.00-0.00); MYELOCYTE PERCENT MAN 2 % (0-0); NEUTROPHILS ABSOLUTE MAN 16.42 K/mm3 (1.96-9.15); SEG NEUTROPHILS PERCENT MAN 82 % (41-73); TOTAL CELLS COUNTED 100
--- NOTE | 2021-10-16 15:14 | NUR ---
Spiritual care visit conducted. Patient is lying in bed but raises her bed when I come in. Pt says that his is another rough day and admits to feeling quite anxious. We talk about some of the causes (recent of spouse, cancer hoyt, and then all the current medical issues she is currently working through). I remind pt of the strength that she has and some of the things she has already overcome and we talk about her vikki and her hope as well. I normalize all that she is feeling, reinforce the helpful attitudes and thoughts and provide gentle encouragement and prayer. Patient responds well and shows signs of greater peace. I will continue to visit patient daily as she seems to elevate her mood.
--- NOTE | 2021-10-16 17:15 | NUR ---
END OF SHIFT SUMMARY: PATIENT HAS VERY MINIMALLY WORSE LABS, GFR TO 19 Hgb TO 7.2. PATIENT HAS ALSO DEVELOPED FINE CRACKLES TO THE RML RLL AND LLL, ADDITIONALLY WITH LLE EDEMA WHICH HAS INCREASED MINIMALLY DURING THE SHIFT. O2 REQUIREMENT NOT IMPROVING, BUT NOT WORSENING, PATIENT'S NOSEBLEEDS HAVE LESSENED SIGNIFICANTLY AND HOOD IS ABLE TO CLEAR SOME VERY THICK TENACIOUS YELLOW SPUTUM, WHIH HAD SOME MINIMAL BLOOD. PATIENT APPEPITITE HAS IMPROVED MINIMALLY. TRIED CALLING SON FOR AN UPDATE, NUMBER IN CHART, NO ANSWER VM LEFT. PATIENT WAS ABLE TO SLEEP FOR A COUPLE MORE HOURS THAN SHE DID ON LINE HAUL OWNER OPERATOR, IS HAVING DIFFICULTY LYING COMPLETLY FLAT, DOES NOT DESAT BUT FEELS SHORT OF BREATH. INFORMED PROVIDER THIS AM OF FINDINGS AND RECOMMENDATIONS, NO NEW ORDERS WERE GIVEN. HOOD INFORMED ME SHE STILL WANTS THE CATHETER IN PLACE. I EDUCATATED PATIENT ON THE NEED FOR REMOVAL. SHE ENDORSES SHE WANTS TO GAIN A LITTLE MORE STRENGTH SHE WOULD HAVE TOGO TO BEDSIDE COMMODE TOO OFTEN RIGHT NOW. WILL CONTINUE TO MONITOR PATIENT AT THIS TIME.
[2021-10-17 03:56] LABS: Hematocrit 20.1 % (33.0-51.0); Hemoglobin 6.5 g/dL (11.5-16.0); Mean Corpuscular HGB 32.2 pg (26.0-34.0); Mean Corpuscular HGB Conc 32.3 g/dL (31.5-36.5); Mean Corpuscular Volume 100 fL (80-100); Mean Platelet Volume 10.4 fL (9.1-12.4); NRBC ABSOLUTE 0.24 K/mm3 (0.00-0.02); NRBC Auto 1.5 /100 WBC (0.0-0.2); Platelet Count 260 K/mm3 (150-400); RDW Coefficient Variation 18.3 % (11.7-14.2); RDW Standard Deviation 54.9 fL (35.1-46.3); Red Blood Cell Count 2.02 M/mm3 (3.80-5.20); White Blood Cell Count 16.09 K/mm3 (4.00-11.30)
[2021-10-17 04:15] LABS: BAND PERCENT MAN 8 % (0-8); BASOPHILS PERCENT MAN 0 % (0-2); EOSINOPHILS PERCENT MAN 0 % (0-6); LYMPHOCYTES ABSOLUTE MAN 0.48 K/mm3 (0.84-5.20); LYMPHOCYTES PERCENT MAN 3 % (21-46); METAMYELOCYTE ABSOLUTE MAN 0.32 K/mm3 (0.00-0.00); METAMYELOCYTE PERCENT MAN 2 % (0-0); MONOCYTES ABSOLUTE MAN 0.64 K/mm3 (0.16-1.47); MONOCYTES PERCENT MAN 4 % (4-13); MYELOCYTE ABSOLUTE MAN 0.16 K/mm3 (0.00-0.00); MYELOCYTE PERCENT MAN 1 % (0-0); NEUTROPHILS ABSOLUTE MAN 14.48 K/mm3 (1.96-9.15); SEG NEUTROPHILS PERCENT MAN 82 % (41-73); TOTAL CELLS COUNTED 100
[2021-10-17 04:16] LABS: Bun/Creatinine Ratio 30.3 (12.0-20.0); Calcium, Blood 6.9 mg/dL (8.5-10.1); Creatinine, Blood 2.51 mg/dL (0.40-1.00); Potassium, Blood 3.3 mmol/L (3.5-5.5)
--- NOTE | 2021-10-17 06:05 | NUR ---
SHIFT SUMMARY PATIENT IS A&OX4 WITH SOME GENERALIZED WEAKNESS. WAS UNCOMORTABLE, RESTLESS IN BED MOST OF THE NIGHT. COMPLAINS OF A STIFF BACK AND SORE HIP. HEAT PAD, REPOSITIONING FREQUENTLY, AND PRN TYLENOL HELPING WITH THIS A LITTLE. VSS. ON 2LNC. DESATS WITH ACTIVITY BUT RECOVERS WELL. FINE CRACKLES HEARD IN BASES AND PRODUCTIVE COUGH NOTED.NSR IN THE 70'S. POOR APPETITE. SOME NAUSEA AND SMALL AMOUNT OF VOMITING WITH MORNING MEDS GIVEN. RECOMEEND TAKING MEDS IN APPLESAUCE AND PATIENT DID MUCH BETTER WITH THIS. SANCHEZ PATENT DRAINING TO GRAVITY WITH GOOD OUPUT. UP WITH ONE TO BSC BUT WAS FEELING TOO WEAK OVERNIGHT AND REQUESTED TO USE BEDPAN INSTEAD. HGB OF 6.5 THIS AM AND MD MADE AWARE OF THIS. 1 UNIT PRBCS ORDERED. INFORMED OF PATIENT DELICATE FLUID BALANCE BUT NO ADDITIONAL DIURETICS ORDERED. WILL BE MONITORING RESP STATUS CLOSELY AND IF DEVELOPS WORSENING SOB MD SAID WILL CONSIDER BUMEX THEN. FALL PRECAUTIONS IN PLACE. WILL CONTINUE PLAN OF CARE UNTIL REPORT IS GIVEN TO DAYSCLAUDIO LUCAS.
--- NOTE | 2021-10-17 15:20 | NUR ---
UPDATE CONTACTED DR JOYNER ABOUT PT POTASSIOUM LEVEL OF 3.3. ISTRUCTED THIS RN TO MONITOR POTASSIOUM LEVEL SINCE PT RECIEVED BLOOD THAT CAN HELP INCREASE POTASSIUM. WILL CONTINUE TO MONITOR.
--- NOTE | 2021-10-17 17:35 | NUR ---
SHIFT SUMMARY PT A/O X4 AND COOPERATIVE OF CARE. VSS THROUGHOUT SHIFT WITH O2 SATS >98% ON 2-3L NC. PT EXPRESSED THT SHE WAS "FEELING WEAK TODAY" WHEN TURNING PT FOR A BEDPAN. PT WAS UP TO BEDSIDE COMMODE WITH ASSISTNCE, TOLERATED WELL. PT RECIEVED 1 UNIT OF BLOOD TODAY, VSS DURING INFUSION. PT REPORTED NAUSEA, TREATED PER EMAR. SANCHEZ IN PLACE AND DRAINING TO GRAVITY. PT NOT EAING MUCH OF HER MEALS, TAKES ITEMS SUCH FRUITS AND ENSURES FROM TRAY AND DECLINES THE REST. PT HAD FAMILY MEMBER BRING A FRUIT SMOOTHIE, PT DRANK ABOUT HALF ROUGHLY 250ML. NO REPORT OF CHEST PAIN/PRESSURE THROUGHOUT SHIFT. NO REPORT OF DYSPNEA/SOB THROUGHOUT SHIFT.
[2021-10-18 05:04] LABS: BASOPHILS ABSOLUTE AUTO 0.01 K/mm3 (0.00-0.23); BASOPHILS PERCENT AUTO 0 % (0-2); EOSINOPHILS ABSOLUTE AUTO 0.16 K/mm3 (0.00-0.68); EOSINOPHILS PERCENT AUTO 1 % (0-6); Hemoglobin 7.1 g/dL (11.5-16.0); IMMATURE GRAN ABSOLUTE AUTO 0.53 K/mm3 (0.00-0.10); IMMATURE GRAN PERCENT AUTO 4 % (0-1); LYMPHOCYTES ABSOLUTE AUTO 1.47 K/mm3 (0.84-5.20); LYMPHOCYTES PERCENT AUTO 12 % (21-46); MONOCYTES ABSOLUTE AUTO 0.67 K/mm3 (0.16-1.47); MONOCYTES PERCENT AUTO 6 % (4-13); Mean Corpuscular HGB 30.1 pg (26.0-34.0); Mean Corpuscular HGB Conc 32.3 g/dL (31.5-36.5); Mean Platelet Volume 10.1 fL (9.1-12.4); NEUTROPHILS ABSOLUTE AUTO 9.43 K/mm3 (1.96-9.15); NEUTROPHILS PERCENT AUTO 77 % (41-73); NRBC ABSOLUTE 0.14 K/mm3 (0.00-0.02); NRBC Auto 1.1 /100 WBC (0.0-0.2); Platelet Count 205 K/mm3 (150-400); RDW Coefficient Variation 21.4 % (11.7-14.2); RDW Standard Deviation 60.9 fL (35.1-46.3); Red Blood Cell Count 2.36 M/mm3 (3.80-5.20); White Blood Cell Count 12.27 K/mm3 (4.00-11.30)
[2021-10-18 05:06] LABS: Mean Corpuscular Volume 93 fL (80-100)
[2021-10-18 05:42] LABS: Bun/Creatinine Ratio 30.8 (12.0-20.0); Calcium, Blood 7.3 mg/dL (8.5-10.1); Creatinine, Blood 1.98 mg/dL (0.40-1.00); Potassium, Blood 3.4 mmol/L (3.5-5.5)
--- NOTE | 2021-10-18 06:05 | NUR ---
SHIFT SUMMARY PATIENT FOUND TO BE A&OX4 AND IN BETTER SPIRITS TONIGHT. GEN WEAKNESS SLOWLY IMPROVING AND PATIENT MOVES SELF WELL IN BED. VSS. NSR ON THE MONITOR. ON 2L NC. DYSNPNEA WITH ANY EXERTION AND DESATS AT TIMES BUT RECOVERS WELL. CRACKLES TO BILAT BASES OF LUNGS REMAINS. PRODUCTIVE COUGH WITH PINK TINGED SPUTUM AT TIMES. HAS SOME APPETITE TONIGHT SO GAVE EXTRA ENSURE. INCONTINET OF LIQUID STOOL IN BRIEF X1. NO PAIN OR DISTRESS. SANCHEZ PATENT DRAINING TO GRAVITY WITH GOOD OUPUT. NO ACUTE CONCERNS AT THIS TIME. WILL CONTINUE PLAN OF CARE UNTIL REPORT GIVEN TO HONEY LUCAS.
--- NOTE | 2021-10-18 19:06 | NUR ---
SHIFT SUMMARY PT A/O X4 AND COOPERATIVE CARE. PT O2 SATS DROPPED TO MID 80'S A COUPLE OF TIMES DURING SHIFT DUE TO PT REMOVING NC TO BLOW NOSE AND WHEN PT WAS ROLLING SELF IN BED. SATS WOULD QUICKLY RETURN TO 90'S WHEN AT REST. OTHER VSS T/O SHIFT. PT HAD EPISODE OF VOMITTING THIS MORNING DUE TO THICK MUCOUS THAT PT WAS STRUGGLING TO CLEAR FROM CHEST AND THROAT. PT SLEPT FOR A COUPLE OF HOURS AFTER THE VOMITTING EPISODE, STATES "I FEEL MUCH BETTER AFTER GETTING SOME REST." NO REPORTS OF CHEST PAIN/PRESSURE T/O SHIFT. SANCHEZ IN PLACE DRAINING TO GRAVITY, YELLOW URINE.
[2021-10-18 21:30] LABS: Adenovirus F 40/41 Not Detected (NOT DETECT); Astrovirus Not Detected (NOT DETECT); Campylobacter Sp Not Detected (NOT DETECT); Cryptosporidium Not Detected (NOT DETECT); Cyclospora Cayetanensis Not Detected (NOT DETECT); E. Coli O157 Not Detected (NOT DETECT); Entamoeba Histolytica Not Detected (NOT DETECT); Enteroaggregative E. coli-EAEC Not Detected (NOT DETECT); Enteropathogenic E. coli-EPEC Not Detected (NOT DETECT); Enterotoxigenic E. coli-ETEC Not Detected (NOT DETECT); Giardia Lamblia Not Detected (NOT DETECT); Norovirus GI/GII Not Detected (NOT DETECT); Plesiomonas Shigelloides Not Detected (NOT DETECT); Rotavirus A Not Detected (NOT DETECT); Salmonella Sp Not Detected (NOT DETECT); Sapovirus Not Detected (NOT DETECT); Shiga Toxin-prod E. coli-STEC Not Detected (NOT DETECT); Shigella/Enteroin E. coli-EIEC Not Detected (NOT DETECT); Vibrio Cholerae Not Detected (NOT DETECT); Vibrio Sp Not Detected (NOT DETECT); Yersinia Enterocolitica Not Detected (NOT DETECT)
[2021-10-19 06:26] LABS: BASOPHILS ABSOLUTE AUTO 0.02 K/mm3 (0.00-0.23); BASOPHILS PERCENT AUTO 0 % (0-2); EOSINOPHILS ABSOLUTE AUTO 0.01 K/mm3 (0.00-0.68); EOSINOPHILS PERCENT AUTO 0 % (0-6); Hematocrit 21.3 % (33.0-51.0); Hemoglobin 6.8 g/dL (11.5-16.0); IMMATURE GRAN ABSOLUTE AUTO 0.31 K/mm3 (0.00-0.10); IMMATURE GRAN PERCENT AUTO 3 % (0-1); LYMPHOCYTES PERCENT AUTO 8 % (21-46); MONOCYTES ABSOLUTE AUTO 0.27 K/mm3 (0.16-1.47); MONOCYTES PERCENT AUTO 3 % (4-13); Mean Corpuscular HGB 30.9 pg (26.0-34.0); Mean Corpuscular HGB Conc 31.9 g/dL (31.5-36.5); Mean Corpuscular Volume 97 fL (80-100); Mean Platelet Volume 9.9 fL (9.1-12.4); NEUTROPHILS ABSOLUTE AUTO 9.21 K/mm3 (1.96-9.15); NEUTROPHILS PERCENT AUTO 86 % (41-73); NRBC ABSOLUTE 0.04 K/mm3 (0.00-0.02); NRBC Auto 0.4 /100 WBC (0.0-0.2); Platelet Count 187 K/mm3 (150-400); RDW Coefficient Variation 21.3 % (11.7-14.2); RDW Standard Deviation 59.4 fL (35.1-46.3); White Blood Cell Count 10.72 K/mm3 (4.00-11.30)
--- NOTE | 2021-10-19 06:27 | NUR ---
SHIFT SUMMARY PATIENT IS A PLESANT LADY WHO IS IN GOOD SPIRITS WITH SOME GEN WEAKNESS. VSS. ON 3L O2 SATING LOW 90'S. TACHYPENIC WITH ANY MOVEMENT OR ACTIVITY BUT SATS MAINTAIN FOR THE MOST PART WITH ONLY SLIGHT TITRATION TO 4L WITH ACTIVITY. NSR IN THE 70'S ON THE MONITOR. THICK, PRODUCTIVE COUGH. POOR APPETITE AND DOES NOT LIKE THE FOOD HERE. ENCOURAGING ENSURE AND ATTEMPTING TO FIND SNACKS SHE MIGHT LIKE. UP WITH ONE ASSIST IN ROOM TO BSC. ONE LOOSE BM AT START OF SHIFT AND 2 OTHERS DURING THE DAY SO MD MADE AWARE AND ORDERED CDIFF SAMPLE. CDIFF NEGATIVE. SANCHEZ CATH IN PLACE DRAINING TO GRAVITY WITH GOOD OUTPUT. BARRIER CREAM TO RED BUTTOCKS. NO ACUTE CONCERNS AT THIS TIME. WILL CONTINUE PLAN OF CARE UNTIL REPORT GIVEN TO HONEY LUCAS.
[2021-10-19 06:41] LABS: Bun/Creatinine Ratio 30.5 (12.0-20.0); Calcium, Blood 7.9 mg/dL (8.5-10.1); Creatinine, Blood 1.28 mg/dL (0.40-1.00); Potassium, Blood 4.5 mmol/L (3.5-5.5)
--- NOTE | 2021-10-19 15:28 | NUR ---
SHIFT SUMMARY PT A&OX4, VSS/3LNC AT REST & 4L W/EXERTION, TELE NSR 70S. GISEL PO, LOW PO INTAKE. SANCHEZ PATENT & DRAINING YELLOW URINE, STAT LOCK ON, OFF FLOOR. AMB WITH 1 PP MOD TRANSFER TO BSC/CHAIR, UP TO CHAIR FOR LUNCH, REPOSITIONS SELF WELL IN BED. RECEIVED 1 UNIT PRBCS TODAY. TCJENNIFER/BOB/I.S. EDU & ENC, PT DEMONSTRATED T/O SHIFT. WILL REPORT TO ONCOMING AMBREEN RN.
[2021-10-20 05:53] LABS: BASOPHILS ABSOLUTE AUTO 0.03 K/mm3 (0.00-0.23); BASOPHILS PERCENT AUTO 0 % (0-2); EOSINOPHILS PERCENT AUTO 0 % (0-6); Hematocrit 29.2 % (33.0-51.0); Hemoglobin 9.3 g/dL (11.5-16.0); IMMATURE GRAN ABSOLUTE AUTO 0.49 K/mm3 (0.00-0.10); IMMATURE GRAN PERCENT AUTO 3 % (0-1); LYMPHOCYTES ABSOLUTE AUTO 1.59 K/mm3 (0.84-5.20); LYMPHOCYTES PERCENT AUTO 9 % (21-46); MONOCYTES ABSOLUTE AUTO 0.84 K/mm3 (0.16-1.47); MONOCYTES PERCENT AUTO 5 % (4-13); Mean Corpuscular HGB 30.6 pg (26.0-34.0); Mean Corpuscular HGB Conc 31.8 g/dL (31.5-36.5); Mean Corpuscular Volume 96 fL (80-100); Mean Platelet Volume 10.1 fL (9.1-12.4); NEUTROPHILS ABSOLUTE AUTO 15.81 K/mm3 (1.96-9.15); NEUTROPHILS PERCENT AUTO 84 % (41-73); NRBC ABSOLUTE 0.11 K/mm3 (0.00-0.02); NRBC Auto 0.6 /100 WBC (0.0-0.2); Platelet Count 204 K/mm3 (150-400); RDW Coefficient Variation 20.7 % (11.7-14.2); RDW Standard Deviation 55.8 fL (35.1-46.3); Red Blood Cell Count 3.04 M/mm3 (3.80-5.20); White Blood Cell Count 18.76 K/mm3 (4.00-11.30)
[2021-10-20 06:09] LABS: Bun/Creatinine Ratio 36.4 (12.0-20.0); Creatinine, Blood 1.07 mg/dL (0.40-1.00); Potassium, Blood 5.1 mmol/L (3.5-5.5)
--- NOTE | 2021-10-20 06:18 | NUR ---
SHIFT SUMMARY PATIENT IS A PLESANT LADY WHO IS IN GOOD SPIRITS WITH SOME GEN WEAKNESS. VSS. ON 3-4L O2 ALL SHIFT. TACHYPENIC WITH ANY MOVEMENT OR ACTIVITY WHICH IS PATIENT BASELINE D/T LUNG CA/INTERSTITIAL LUNG DX. NSR IN THE 70'S. PRODUCTIVE COUGH IMPROVING. PREFERS LIQUID FOOD THEY ARE EASIER TO EAT AND ENCOURAGING ORAL INTAKE. STILL HAVING LOOSE BM BUT NO LONGER LIQUID. BM PER COMMODE THIS AM. SANCHEZ CATH PATENT DRAINING TO GRAVITY WITH GOOD OUTPUT. WILL CONTINUE PLAN OF CARE UNTIL REPORT GIVEN TO HONEY LUCAS.
--- NOTE | 2021-10-20 14:50 | NUR ---
Met pt. in bed resting ,pt. reports tired offered prayers and gave spiritual support.
--- NOTE | 2021-10-20 17:58 | NUR ---
SHIFT SUMMARY PT HAS BEEN RESTING IN ROOM. PT C/O POOR SLEEP THROUGH THE NIGHT AND REQUESTED THE ROOM TO BE DARKENED FOR A NAP, THEY WERE UNABLE TO SLEEP. PT HAS CALLED APPROPRIATELY AND HAS GOTTEN UP TO THE BEDSIDE COMMODE ON TWO OCCASIONS WITH STAND-BY ASSISTANCE. SBP RANGED 151-139, ALL OTHER VSS. PT DENIED C/O PAIN OR DISCOMFORT AND REPOSITIONED SELF FREQUENTLY.
--- NOTE | 2021-10-20 19:31 | NUR ---
RECEIVED REPORT AND ASSUMED CARE OF PT. SHE IS A STANDBY ASSIST TO THE BEDSIDE COMMODE. SOB ON EXERTION, RECOVERS QUICKLY, USES PURSED LIP BREATHING WITHOUT PROMPTING. SHE DENIES ANY NEEDS AT THIS TIME. ABIMAEL.
[2021-10-21 05:46] LABS: BASOPHILS ABSOLUTE AUTO 0.03 K/mm3 (0.00-0.23); BASOPHILS PERCENT AUTO 0 % (0-2); EOSINOPHILS ABSOLUTE AUTO 0.06 K/mm3 (0.00-0.68); EOSINOPHILS PERCENT AUTO 0 % (0-6); IMMATURE GRAN PERCENT AUTO 3 % (0-1); LYMPHOCYTES ABSOLUTE AUTO 2.68 K/mm3 (0.84-5.20); LYMPHOCYTES PERCENT AUTO 17 % (21-46); MONOCYTES ABSOLUTE AUTO 1.03 K/mm3 (0.16-1.47); MONOCYTES PERCENT AUTO 7 % (4-13); Mean Corpuscular HGB 30.1 pg (26.0-34.0); Mean Corpuscular Volume 100 fL (80-100); Mean Platelet Volume 10.1 fL (9.1-12.4); NEUTROPHILS ABSOLUTE AUTO 11.71 K/mm3 (1.96-9.15); NEUTROPHILS PERCENT AUTO 74 % (41-73); NRBC ABSOLUTE 0.12 K/mm3 (0.00-0.02); NRBC Auto 0.8 /100 WBC (0.0-0.2); Platelet Count 185 K/mm3 (150-400); RDW Coefficient Variation 21.2 % (11.7-14.2); RDW Standard Deviation 56.6 fL (35.1-46.3); Red Blood Cell Count 2.99 M/mm3 (3.80-5.20); White Blood Cell Count 15.91 K/mm3 (4.00-11.30)
--- NOTE | 2021-10-21 06:08 | NUR ---
SHIFT SUMMARY: AQUILINO IS A&OX4. VSS, NO ACUTE EVENTS OVERNIGHT. SATURATIONS MAINTAINING ON 3-5 L VIA HI-KIN NASAL CANNULA. SHE DOES DESAT ON EXERTION AND HER OXYGEN DEMANDS INCREASE, SHE IS ABLE TO RETURN TO THE LOWER 02 RATE IN A FEW MINUTES AND DEMONSTRATES PURSED LIP BREATHING WITHOUT PROMPTING. SHE STATES THAT SHE DOES NOT USE OXYGEN AT HOME BASELINE. DANIEL PACHECO, BAG HANGING FROM BED ABOVE FLOOR, TOLERATING PO INTAKE WELL (ORAL INTAKE PRECAUTIONS OBSERVED), AND IS A STANDBY ASSIST TO THE BEDSIDE COMMODE. SHE IS SOFT-SPOKEN D/T A PARALYZED VOCAL CORD. POWERGLIDE TO CRYS PACHECO, HOWEVER UNABLE TO DRAW BLOOD FOR LAB WORK. SHE IS LYING IN BED WITH THE CALL LIGHT IN REACH. WILL REPORT TO DAY SHIFT RN.
[2021-10-21 06:31] LABS: Bun/Creatinine Ratio 32.4 (12.0-20.0); Calcium, Blood 9.1 mg/dL (8.5-10.1); Creatinine, Blood 1.05 mg/dL (0.40-1.00); Potassium, Blood 5.2 mmol/L (3.5-5.5)
--- NOTE | 2021-10-21 14:08 | NUR ---
Pt. is lyingn inn bed tired wants to rest prayed for her
--- NOTE | 2021-10-21 18:06 | NUR ---
SHIFT SUMMARY PT HAS BEEN RESTING IN ROOM. PT GOT UP TO THE CHAIR WITH OCCUPATIONAL THERAPY AND TRANSFERRED SELF BACK TO BED AFTER AN HOUR. PT HAS DENIED C/O PAIN AND DISCOMFORT. PT TRANSITIONED TO MEDICAL STATUS WITH TELEMETRY. SANCHEZ CATHETER WAS DC'D AT APPROXIMATELY 1500 AND PT HAS HAD UNMEASURED VOID SINCE THAT TIME. PT IS CONCERNED OVER THE RETURN OF BLADDER CONTROL AND PT WAS EDUCATED ON URINARY CATHETERS, THIS SEEMED TO EASE CONCERNS. PT CONTINUES TO HAVE DYSPNEA WITH EXERTION BUT WILL RECOVER QUICKLY WITH REST. VSS, NO ACUTE CHANGES TO CURRENT CONDITION.
[2021-10-22 03:52] LABS: BASOPHILS ABSOLUTE AUTO 0.03 K/mm3 (0.00-0.23); BASOPHILS PERCENT AUTO 0 % (0-2); EOSINOPHILS ABSOLUTE AUTO 0.12 K/mm3 (0.00-0.68); EOSINOPHILS PERCENT AUTO 1 % (0-6); Hemoglobin 10.1 g/dL (11.5-16.0); IMMATURE GRAN ABSOLUTE AUTO 0.28 K/mm3 (0.00-0.10); IMMATURE GRAN PERCENT AUTO 2 % (0-1); LYMPHOCYTES ABSOLUTE AUTO 2.79 K/mm3 (0.84-5.20); LYMPHOCYTES PERCENT AUTO 21 % (21-46); MONOCYTES ABSOLUTE AUTO 0.96 K/mm3 (0.16-1.47); MONOCYTES PERCENT AUTO 7 % (4-13); Mean Corpuscular HGB 30.9 pg (26.0-34.0); Mean Corpuscular HGB Conc 30.6 g/dL (31.5-36.5); Mean Corpuscular Volume 101 fL (80-100); Mean Platelet Volume 10.2 fL (9.1-12.4); NEUTROPHILS ABSOLUTE AUTO 9.06 K/mm3 (1.96-9.15); NEUTROPHILS PERCENT AUTO 68 % (41-73); NRBC ABSOLUTE 0.09 K/mm3 (0.00-0.02); NRBC Auto 0.7 /100 WBC (0.0-0.2); Platelet Count 209 K/mm3 (150-400); RDW Coefficient Variation 21.5 % (11.7-14.2); RDW Standard Deviation 56.8 fL (35.1-46.3); Red Blood Cell Count 3.27 M/mm3 (3.80-5.20); White Blood Cell Count 13.24 K/mm3 (4.00-11.30)
[2021-10-22 04:09] LABS: Bun/Creatinine Ratio 30.5 (12.0-20.0); Calcium, Blood 8.6 mg/dL (8.5-10.1); Creatinine, Blood 1.05 mg/dL (0.40-1.00); Potassium, Blood 4.9 mmol/L (3.5-5.5)
--- NOTE | 2021-10-22 05:54 | NUR ---
SHIFT SUMMARY PT ALERT AND ORIENTED X4. HR NSR 70'S AND 80'S. ON 2.5L NC MAINTAINING SATS ABOVE 92% AT REST. DESATS WITH ACTIVITY. SANCHEZ REMOVED DURING DAY YESTERDAY. PT TOLERATED WELL, HAS BEEN VOIDING W/ X1 SBA TO BEDSIDE COMMODE. PT RESTING OR SLEEPING COMFORTABLY THROUGH MOST OF NIGHT. CRYS PG DOES NOT DRAW. IN BED RESTING WITH CALL ALARM AT SIDE. WILL CONTINUE TO MONITOR UNTIL REPORT GIVEN.
--- NOTE | 2021-10-22 10:53 | NUR ---
PT TRANSFERRED TO RM 343, REPORT GIVEN TO RJ LUCAS. ALL BELONGINGS SENT WITH THE PT PT REMAINS ALERT AND ORIENTED THIS MORNING, REPORTS HALF VOICE MOSTLY WHISPERS WHEN COMMUNICATION, NUNAM IQUA. PT GOT UP IN THE COMMODE THIS MORNING STILL GETS SOB DESATS TO 85% ON 3L OF O2 AND WILL HUNCH OVER IN THE BED TO CATCH HER BREATH. OTHERWISE STAYS ABOVE 95% WHEN RESTING IN BED. THE REST OF THE VITALS STABLE, HRR SINUS AT 70'S, BP SYTOLIC 140'S. TOOK MEDS THIS MORNING 1 AT A TIME WITH WATER NO ISSUES. PT FOR POSSIBLE DC IN AM WITH HOME HEALTH ORDER. PT ACCOMPANIED AND TRANSPORTED VIA BED.
--- NOTE | 2021-10-22 10:53 | NUR ---
PT TX FROM PCU 1 TO ROOM 243- ORIENTED TO ROOM AND CALL LIGHT AND SAFETY. TELE CONFIRMED AND CALLED RT FOR CONT BIOX.
--- NOTE | 2021-10-22 13:08 | NUR ---
Spiritual care visit conducted. Patient immediately tells me that she is feeling "down" today. We spend time talking about the places that she has been that inspire her "walks on the beach, the sun's warmth on her body" and we talk about people that she has met that have meant much to her (which is her late Blayne). We talk about visualizing places and people that have lifted her up when she is have challenging thoughts. I normalize her struggle, reinforce helpful perspectives and provide prayer. Patient responds well, appears encouraged and voices appreciation for the visit. I will continue to remain available to patient and family.
--- NOTE | 2021-10-22 17:39 | NUR ---
pATIENT WAS TRANSFER FROM [facility], PATIENT IS AWAKE,ALERT AND ORIENTED TIMES THREE.DENIES PAIN. CURRENTLY ON OXYGEN 3L NC AT 100%. NO ACUTE DISTRESS. PER MD PATIENT WILL BE DISCHARGE TOMORROW.
--- NOTE | 2021-10-23 03:41 | NUR ---
Ms Lisa woke several times to void in bedside commode. she would desaturate into mid to high 80's with very minimal exertion, then need to be coached back after returning to bed to go back into the mid 90's. She refused to allow this RN to use gait belt or FWW [place] [facility] and was very unsteady on her feet. No complaints of pain or discomfort overnight. just concern for her safety. She did not however, attempt to get OOB independently all night.
[2021-10-23 05:17] LABS: BASOPHILS ABSOLUTE AUTO 0.02 K/mm3 (0.00-0.23); BASOPHILS PERCENT AUTO 0 % (0-2); EOSINOPHILS ABSOLUTE AUTO 0.21 K/mm3 (0.00-0.68); EOSINOPHILS PERCENT AUTO 2 % (0-6); Hematocrit 32.1 % (33.0-51.0); Hemoglobin 9.7 g/dL (11.5-16.0); IMMATURE GRAN ABSOLUTE AUTO 0.19 K/mm3 (0.00-0.10); IMMATURE GRAN PERCENT AUTO 2 % (0-1); LYMPHOCYTES ABSOLUTE AUTO 2.66 K/mm3 (0.84-5.20); LYMPHOCYTES PERCENT AUTO 25 % (21-46); MONOCYTES PERCENT AUTO 7 % (4-13); Mean Corpuscular HGB Conc 30.2 g/dL (31.5-36.5); Mean Corpuscular Volume 103 fL (80-100); Mean Platelet Volume 10.2 fL (9.1-12.4); NEUTROPHILS ABSOLUTE AUTO 6.86 K/mm3 (1.96-9.15); NEUTROPHILS PERCENT AUTO 64 % (41-73); NRBC ABSOLUTE 0.03 K/mm3 (0.00-0.02); NRBC Auto 0.3 /100 WBC (0.0-0.2); Platelet Count 180 K/mm3 (150-400); RDW Coefficient Variation 21.7 % (11.7-14.2); RDW Standard Deviation 57.8 fL (35.1-46.3); Red Blood Cell Count 3.13 M/mm3 (3.80-5.20); White Blood Cell Count 10.64 K/mm3 (4.00-11.30)
[2021-10-23 05:54] LABS: Bun/Creatinine Ratio 33.9 (12.0-20.0); Calcium, Blood 9.1 mg/dL (8.5-10.1); Creatinine, Blood 1.15 mg/dL (0.40-1.00); Potassium, Blood 4.4 mmol/L (3.5-5.5)
--- NOTE | 2021-10-23 17:41 | NUR ---
PATIENT IS AWAKE,ALERT AND ORIENTED TIMES THREE. DENIES PAIN. PATIENT REQUEST TO RECIEVED THE WALKER SHE PREVIOULY REFUSED.MATERIAL STOCKKEEPER YARD( LARRY MAGAÑA) MADE AWARE OF PATIENT REQUEST.
--- NOTE | 2021-10-24 04:10 | NUR ---
MS ALVARENGA HAD A MUCH BETTER SLEEP LAST NIGHT THAN THE NIGHT PRIOR. NO COMPLAINTS OF PAIN OR DISCOMFORT. 02 REMAINS ON 3 LITERS WHICH WAS ADEQUATE TO KEEP HER IN THE 90-97 RANGE WITH EXCEPTION OF WHEN SHE WAS OOB ON THE BEDSIDE COMMODE. 02 SATS WOULD DROP INTO THE MID TO HIGH 80'S AND PATIENT WOULD BE QUITE SYMPTOMATIC. SATURATIONS WOULD RESOLVE QUICKLY ONCE SITTING DOWN OR BACK IN BED. HER PLANS STILL ARE TO GO HOME ON HER OWN. SHE STATES SHE HAS SEVERAL FRIENDS IN THE NEIGHBORHOOD WHO CHECK IN ON HER REGULARLY.
[2021-10-24 05:22] LABS: BASOPHILS ABSOLUTE AUTO 0.01 K/mm3 (0.00-0.23); BASOPHILS PERCENT AUTO 0 % (0-2); EOSINOPHILS ABSOLUTE AUTO 0.16 K/mm3 (0.00-0.68); EOSINOPHILS PERCENT AUTO 2 % (0-6); Hematocrit 30.5 % (33.0-51.0); Hemoglobin 9.1 g/dL (11.5-16.0); IMMATURE GRAN ABSOLUTE AUTO 0.15 K/mm3 (0.00-0.10); IMMATURE GRAN PERCENT AUTO 2 % (0-1); LYMPHOCYTES ABSOLUTE AUTO 2.08 K/mm3 (0.84-5.20); LYMPHOCYTES PERCENT AUTO 22 % (21-46); MONOCYTES ABSOLUTE AUTO 0.64 K/mm3 (0.16-1.47); MONOCYTES PERCENT AUTO 7 % (4-13); Mean Corpuscular HGB 30.6 pg (26.0-34.0); Mean Corpuscular HGB Conc 29.8 g/dL (31.5-36.5); Mean Corpuscular Volume 103 fL (80-100); Mean Platelet Volume 10.2 fL (9.1-12.4); NEUTROPHILS PERCENT AUTO 67 % (41-73); Platelet Count 165 K/mm3 (150-400); RDW Standard Deviation 57.7 fL (35.1-46.3); Red Blood Cell Count 2.97 M/mm3 (3.80-5.20); White Blood Cell Count 9.34 K/mm3 (4.00-11.30)
[2021-10-24 05:46] LABS: Bun/Creatinine Ratio 35.6 (12.0-20.0); Calcium, Blood 8.4 mg/dL (8.5-10.1); Creatinine, Blood 1.04 mg/dL (0.40-1.00); Potassium, Blood 4.2 mmol/L (3.5-5.5)
--- NOTE | 2021-10-24 11:11 | NUR ---
Spiritual care visit conducted. Patient is lying in bed and resting. She awakens easily to the sound of her name. She immediately tells me that she is anxious about returning home and at the same time she is tired of being in the hospital. She tells me that she is mostly concerned about after DC at home during the nights when her neighbors (who are her only local support) will be unavailable. I provide anxiety containment and prayer. Patient responds well and shows signs of increased peace.
--- NOTE | 2021-10-24 15:21 | NUR ---
Per Dr. Aburto, patient is appropriate for discharge. Patient was to discharge home but, does not feel she is physically strong enough to be home alone, even with home health services. Patient lives in a fifth wheel and does not necesarily have enough space to use a two wheeled walker. But would benefit to have the two wheeled walker to use outside of her home. Patient has been accepted to [facility]. I emailed Andrea Lima with [facility] a patient packet. I scheduled discharge transportation with [facility]. Patient to transfer via wheelchair van, with oxygen at 13:00. I had previously scheduled an [facility] follow up appointment and Oncology Follow Up appointment for next week. Those have been cancelled since the patient is transferring to [facility] tomorrow. Patient will need a rapid covid done prior to discharge. Covid results, Discharge Med Rec, and Discharge orders will need to be faxed to [facility] prior to transfer. [facility] fax number is [phone]. Patient, patient's nurse, patient's son (Brodie), Andrea Lima with , and Dr. Aburto have all been informed of discharge plan and eta of 13:00 for [facility] to transport. I have also completed an OHP application with the patient in her room. I plan on calling [employer] to request a phone interview to apply for long-term care benefits. I have also consulted with the patient and her son regarding her long-term care plan. Patient denies barriers to discharge plan and feels safe to discharge from the hospital to [facility]. Patient packet left in patient locker.
--- NOTE | 2021-10-24 17:39 | NUR ---
SHIFT SUMMARY NO ACUTE CHANGES THIS SHIFT. PT REMAINS ON 2-3 LITERS O2 AND BECOMES VERY DYSPNEIC WITH MOVEMENT. O2 SATS WILL DROP BUT PUT PT WILL RECOVER WITH REST. SHE IS TO DC TO [facility] TOMORROW AT 1300. COVID TEST AND MED REC WILL NEED TO BE FAXED TO THE FACILITY. LIST OF DOCUMENTS TO FAXED IS LISTED ON THE FRONT OF DC PACKET. VSS. WILL REPORT TO AMBREEN LUCAS.
--- NOTE | 2021-10-25 04:03 | NUR ---
SHIFT SUMMARY ADMITTED FOR HYPOXIA. DNR CODE. PLAN IS FOR REHAB @ [facility]. SHE WAS LIVING ALONE. SHE HAS A POWERGLIDE IN [facility]. SHE IS ON 3 LPM O2. TELEMETRY: NSR @ 76 BPM. SHE IS A STANDBY ASSIST TO BSC. SHE DOES DESATURATE WITH ACTIVITY. SHE IS ALSO DIAGNOSED WITH STAGE 4 LUNG CANCER. SHE IS A&O X4 AND COOPERATIVE WITH CARE.
[2021-10-25 12:02] LABS: Influenza A, PCR NEGATIVE (NEGATIVE); Influenza B, PCR NEGATIVE (NEGATIVE); Resp Syncytial Virus, PCR NEGATIVE (NEGATIVE); SARS-Cov-2 (COVID-19) PCR, MMC NEGATIVE (NEGATIVE)
[2021-10-25] MEDS ORDERED: ASPI81CH PO (12:27)
[2021-10-25] MEDS ORDERED: METO50ER PO (12:30)
[2021-10-25] MEDS ORDERED: ALBU2.5V5 INH (12:31)
[2021-10-25] MEDS ORDERED: CLOP75 PO (12:49)
[2021-10-25] MEDS ORDERED: Isosorbide Mono30 MG PO (12:49)
[2021-10-25] MEDS ORDERED: MELATONIN5 M1 PO (12:50)
[2021-10-25] MEDS ORDERED: PRED20 PO (12:50)
[2021-10-25] MEDS ORDERED: MIRT15 PO (12:50)
[2021-10-25] MEDS ORDERED: VISBIOME 112.51 EACH PO (12:51)
--- NOTE | 2021-10-25 13:22 | NUR ---
DISCHARGE: PT DC TO REHAB AT THIS TIME VIA TRANSPORT. POWERGLIDE DC'D WNL. PT REMAINS ON 3L O2. PT BELONGINGS SENT WITH HER. VOIDED PRIOR TO DC. PULL UP ON. ORDERS AND MEDS FAXED TO [facility]. FAMILY NOTIFIED.
--- NOTE | 2021-10-27 08:18 | NUR ---
Review of patient's records today indicate that patient was transferred to SNF on Wednesday- 10/25/2021. Notified [facility] Intake DICTATING MACHINE TRANSCRIBER (Valorie Mcadams) of the above. No furtherinterventions required. Yisel Stratton Referral Liaison
== END 2021-10-25 13:12 | DRG 177 ==
LOC: ER 10:42 → ERHOLD 10:43 → MEDS 17:02 → PCU 10-08 09:45 → MEDS 10-08 09:46 → PCU 10-08 16:30 → MEDS 10-22 10:42
PROVIDERS: Family Medicine; Hospitalist; Internal Medicine; Internal Medicine Endocrinology, Diabetes & Metabolism; Physician Assistant; ADMIT Family Medicine
PROC: 30233N1 Transfusion of Nonautologous Red Blood Cells into Peripheral Vein, Percutaneous Approach (ICD-10-PCS; principal; 2021-10-18)
DX: B37.1 Pulmonary candidiasis (principal); A41.9 Sepsis, unspecified organism; J96.21 Acute and chronic respiratory failure with hypoxia; C34.90 Malignant neoplasm of unspecified part of unspecified bronchus or lung; C79.51 Secondary malignant neoplasm of bone; Z66 Do not resuscitate; I13.0 Hypertensive heart and chronic kidney disease with heart failure and stage 1 through stage 4 chronic kidney disease, or unspecified chronic kidney disease; N17.9 Acute kidney failure, unspecified; I24.8 Other forms of acute ischemic heart disease; J70.0 Acute pulmonary manifestations due to radiation; Z20.822 Contact with and (suspected) exposure to COVID-19; B37.49 Other urogenital candidiasis; J84.112 Idiopathic pulmonary fibrosis; D63.1 Anemia in chronic kidney disease; I50.9 Heart failure, unspecified; J38.01 Paralysis of vocal cords and larynx, unilateral; I25.10 Atherosclerotic heart disease of native coronary artery without angina pectoris; N18.9 Chronic kidney disease, unspecified; F41.9 Anxiety disorder, unspecified; E78.5 Hyperlipidemia, unspecified; R49.0 Dysphonia; F32.A Depression, unspecified; Z79.82 Long term (current) use of aspirin; Z95.5 Presence of coronary angioplasty implant and graft; Z85.3 Personal history of malignant neoplasm of breast; Z85.118 Personal history of other malignant neoplasm of bronchus and lung; Z79.899 Other long term (current) drug therapy; Z92.21 Personal history of antineoplastic chemotherapy; Z87.891 Personal history of nicotine dependence; Z92.3 Personal history of irradiation; Z90.49 Acquired absence of other specified parts of digestive tract; Z90.710 Acquired absence of both cervix and uterus
CPT/HCPCS: 0097U; 0202U; 0241U; 36415; 36430; 51702; 71045; 71046; 71260; 80048; 80053; 80069; 80202; 81001; 82330; 83735; 83880; 84100; 84145; 84484; 85025; 85610; 85651; 85730; 86140; 86850; 86900; 86901; 86923; 87070; 87086; 87205; 92610; 93005; 93010; 93306; 94640; 94668; 94760; 94762; 96372; 97110; 97116; 97162; 97165; 97530; 97535; 99285-25; A9270; C1751; G0378; J0456; J0696; J1644; J1650; J1940; J2405; J2543; J2920; J2930; J3370; J7050; J7512; P9016; Q9967

== ENCOUNTER → 2021-10-31 | Outpatient (CLI) | payer MEDICARE, OTHER ==
[~2021-10-31] MED LIST changes: +ALBU2.5V5 INH; +ASPI325 PO; +ASPI81CH PO; +ATORVASTATIN CA80 M1 PO; +CARAFATE1 GM PO; +CLOP75 PO; +FLUOXETINE HCL20 M1 PO; +Isosorbide Mono30 MG PO; +MELATONIN5 M1 PO; +METO25ER PO; +METO50ER PO; +MIRT15 PO; +PANT40 PO; +PRED20 PO; +VISBIOME 112.51 EACH PO; +WELLBUTRIN 300 MG PO
[2021-10-31 14:04] LABS: Albumin, Blood 2.6 g/dL (3.4-5.0); Anion Gap 12 mmol/L (6-16); Blood Urea Nitrogen 23 mg/dL (8-24); Bun/Creatinine Ratio 19.7 (12.0-20.0); CO2, Blood 27 mmol/L (21-32); Chloride, Blood 106 mmol/L (98-108); Creatinine, Blood 1.17 mg/dL (0.40-1.00); Glomerular Filtration Rate 45 (60-); Glucose, Blood 118 mg/dL (70-99); Phosphorus, Blood 3.3 mg/dL (2.5-4.9); Potassium, Blood 4.3 mmol/L (3.5-5.5); Sodium, Blood 145 mmol/L (136-145)
== END ==
LOC: LAB SHORT 11:27
PROVIDERS: Physician Assistant
DX: D53.9 Nutritional anemia, unspecified (principal); N17.9 Acute kidney failure, unspecified
CPT/HCPCS: 80069; 82607; 82746

== ENCOUNTER 2021-11-09 00:46 | Inpatient (IN) | payer MEDICARE, OTHER ==
[~2021-11-09] VITALS: Ht 172.7 cm; Wt 72.5 kg
[2021-11-09] MEDS ORDERED: MIRT15 (01:07)
[2021-11-09 01:11] LABS: BASOPHILS ABSOLUTE AUTO 0.07 K/mm3 (0.00-0.23); BASOPHILS PERCENT AUTO 1 % (0-2); EOSINOPHILS ABSOLUTE AUTO 0.07 K/mm3 (0.00-0.68); EOSINOPHILS PERCENT AUTO 1 % (0-6); Hematocrit 34.9 % (33.0-51.0); Hemoglobin 10.7 g/dL (11.5-16.0); IMMATURE GRAN ABSOLUTE AUTO 0.14 K/mm3 (0.00-0.10); IMMATURE GRAN PERCENT AUTO 1 % (0-1); LYMPHOCYTES ABSOLUTE AUTO 0.71 K/mm3 (0.84-5.20); LYMPHOCYTES PERCENT AUTO 7 % (21-46); MONOCYTES ABSOLUTE AUTO 0.66 K/mm3 (0.16-1.47); MONOCYTES PERCENT AUTO 6 % (4-13); Mean Corpuscular HGB 30.7 pg (26.0-34.0); Mean Corpuscular HGB Conc 30.7 g/dL (31.5-36.5); Mean Corpuscular Volume 100 fL (80-100); NEUTROPHILS ABSOLUTE AUTO 8.62 K/mm3 (1.96-9.15); NEUTROPHILS PERCENT AUTO 84 % (41-73); NRBC ABSOLUTE 0.04 K/mm3 (0.00-0.02); NRBC Auto 0.4 /100 WBC (0.0-0.2); Platelet Count 216 K/mm3 (150-400); RDW Coefficient Variation 21.2 % (11.7-14.2); RDW Standard Deviation 75.9 fL (35.1-46.3); Red Blood Cell Count 3.48 M/mm3 (3.80-5.20); White Blood Cell Count 10.27 K/mm3 (4.00-11.30)
[2021-11-09 01:16] LABS: PCO2 Arterial 30.5 mmHg (35-45); PO2 Arterial 71.3 mmHg (80-100); pH Blood Arterial 7.53 (7.35-7.45)
[2021-11-09 01:28] LABS: Alanine Aminotransfer (ALT/SGP 34 U/L (12-78); Albumin, Blood 2.2 g/dL (3.4-5.0); Albumin/Globulin Ratio 0.4 (0.8-1.8); Alk Phos 370 U/L (50-136); Anion Gap 9 mmol/L (6-16); Aspartate Aminotrans (AST/SGOT 50 U/L (12-37); Bilirubin, Total 0.5 mg/dL (0.1-1.0); Blood Urea Nitrogen 29 mg/dL (8-24); Bun/Creatinine Ratio 33.1 (12.0-20.0); CO2, Blood 24 mmol/L (21-32); Calcium, Blood 9.3 mg/dL (8.5-10.1); Chloride, Blood 109 mmol/L (98-108); Creatinine, Blood 0.88 mg/dL (0.40-1.00); Globulin, Blood 4.9 g/dL (2.2-4.0); Glomerular Filtration Rate >60 (60-); Glucose, Blood 125 mg/dL (70-99); Magnesium, Blood 2.4 mg/dL (1.6-2.4); Potassium, Blood 4.2 mmol/L (3.5-5.5); Sodium, Blood 142 mmol/L (136-145); Total Protein, Blood 7.1 g/dL (6.4-8.2)
[2021-11-09 01:55] LABS: Influenza A, PCR NEGATIVE (NEGATIVE); Influenza B, PCR NEGATIVE (NEGATIVE); Resp Syncytial Virus, PCR NEGATIVE (NEGATIVE); SARS-Cov-2 (COVID-19) PCR, MMC NEGATIVE (NEGATIVE)
[2021-11-09 03:08] LABS: Anti-Xa UFH, PHA Monitoring <0.10 IU/mL; International Normalized Ratio 1.09; Prothrombin Time Results 11.4 Sec (9.7-11.5)
--- NOTE | 2021-11-09 05:31 | NUR ---
SHIFT SUMMARY PATIENT ADMITTED TO FLOOR AT APPROXIMETLY 0400 AND FOUND TO BE A PLESANT LADY WHO IS A&OX4 WITH GENERALIZED FATIGUE AND WEAKNESS. MANCHESTER AND HOARSE VOICE AT BASELINE. VSS. ON 12L OXYMIZER TO START AND NOW ON 8LHFNC SATING MID 90'S. SOB WITH ANY EXERTION OR TALKING. TACHYPENIC IN THE LOW 20'S. PRODUCTIVE COUGH WITH THICK YELLOW SPUTUM OCCASIONALLY BLOOD TINGED. WILL OBTAIN SPUTUM SAMPLE. NO NAUSEA OR VOMITING UPON ADMIT. ICE CHIPS GIVEN BUT OTHERWISE NPO AT THIS TIME. NOT VOIDED YET SINCE ADMIT BUT WILL PLAN ON USING BSC UNTIL SANCHEZ ORDER OBTAINED. IV HEPARIN AND ABX RUNNING PER ORDER. NO PAIN OR DISTRESS UPON ASSESMENT. NO ACUTE CONCERNS AT THIS TIME. CARLOS CONTINUE PLAN OF CARE UNTIL REPORT GIVEN TO HONEY LUCAS.
--- NOTE | 2021-11-09 09:21 | NUR ---
CARE NOTE PT IS ALERT AND ORIENTED X4. SPO2 94% VIA 8L NC. PT DENIED FEELINGS OF NAUSEA AND VOMITTING, THIS NURSE ORDERED PT A DIET AND WILL CONSULT WITH . WILL CONTINUE TO MONITOR, CALL LIGHT IN REACH
--- NOTE | 2021-11-09 10:57 | NUR ---
CATHETER INSERTION PT BECOMES SHORT OF BREATH WITH MINIMAL EXERTION WELL TACHYPNEIC, SANCHEZ CATHETER INSERTED TO CONSERVE ENERGY. CLEAR/LIGHT YELLOW OUTPUT NOTED.
[2021-11-09 11:53] LABS: Source, Urine Foley catheter
[2021-11-09 11:57] LABS: Bilirubin, Urine Neg (Neg); Blood, Urine 2+ (Neg); Glucose Qualitative, Urine Neg (Neg); Ketones, Urine Neg (Neg); Leukocyte Esterase, Urine 3+ (Neg); Nitrite, Urine Pos (Neg); Protein, Urine 2+ (Neg); Specific Gravity, Urine 1.005 (1.003-1.022); Urobilinogen, Urine NORM (Normal)
[2021-11-09 12:18] LABS: Appearance, Urine Cloudy (Clear); Color, Urine Pale Yellow (P-Yellow)
[2021-11-09 12:21] LABS: Bacteria Many /hpf; Squamous Epithelial Cells Rare /hpf (Few); WBC Cast 0-2 /lpf (0)
[2021-11-09 13:07] LABS: BASOPHILS ABSOLUTE AUTO 0.05 K/mm3 (0.00-0.23); BASOPHILS PERCENT AUTO 0 % (0-2); EOSINOPHILS ABSOLUTE AUTO 0.07 K/mm3 (0.00-0.68); EOSINOPHILS PERCENT AUTO 1 % (0-6); Hematocrit 31.6 % (33.0-51.0); Hemoglobin 9.6 g/dL (11.5-16.0); IMMATURE GRAN ABSOLUTE AUTO 0.11 K/mm3 (0.00-0.10); IMMATURE GRAN PERCENT AUTO 1 % (0-1); LYMPHOCYTES ABSOLUTE AUTO 0.53 K/mm3 (0.84-5.20); LYMPHOCYTES PERCENT AUTO 5 % (21-46); MONOCYTES ABSOLUTE AUTO 0.51 K/mm3 (0.16-1.47); MONOCYTES PERCENT AUTO 5 % (4-13); Mean Corpuscular HGB 30.8 pg (26.0-34.0); Mean Corpuscular HGB Conc 30.4 g/dL (31.5-36.5); Mean Corpuscular Volume 101 fL (80-100); Mean Platelet Volume 10.7 fL (9.1-12.4); NEUTROPHILS ABSOLUTE AUTO 10.16 K/mm3 (1.96-9.15); NEUTROPHILS PERCENT AUTO 89 % (41-73); NRBC ABSOLUTE 0.02 K/mm3 (0.00-0.02); NRBC Auto 0.2 /100 WBC (0.0-0.2); Platelet Count 162 K/mm3 (150-400); RDW Coefficient Variation 21.6 % (11.7-14.2); RDW Standard Deviation 78.4 fL (35.1-46.3); Red Blood Cell Count 3.12 M/mm3 (3.80-5.20); White Blood Cell Count 11.43 K/mm3 (4.00-11.30)
[2021-11-09 13:28] LABS: Alanine Aminotransfer (ALT/SGP 36 U/L (12-78); Albumin, Blood 1.9 g/dL (3.4-5.0); Albumin/Globulin Ratio 0.5 (0.8-1.8); Alk Phos 318 U/L (50-136); Anion Gap 8 mmol/L (6-16); Aspartate Aminotrans (AST/SGOT 58 U/L (12-37); Bilirubin, Total 0.4 mg/dL (0.1-1.0); Blood Urea Nitrogen 29 mg/dL (8-24); Bun/Creatinine Ratio 35.3 (12.0-20.0); CO2, Blood 24 mmol/L (21-32); Calcium, Blood 8.7 mg/dL (8.5-10.1); Chloride, Blood 113 mmol/L (98-108); Creatinine, Blood 0.82 mg/dL (0.40-1.00); Globulin, Blood 4.2 g/dL (2.2-4.0); Glomerular Filtration Rate >60 (60-); Glucose, Blood 290 mg/dL (70-99); Potassium, Blood 4.4 mmol/L (3.5-5.5); Sodium, Blood 145 mmol/L (136-145); Total Protein, Blood 6.1 g/dL (6.4-8.2)
--- NOTE | 2021-11-09 14:37 | NUR ---
CARE NOTE PT STARTED TO DESATURATE LOW TO MID 80'S AT APPROX 1355, DR. JOYNER IN ROOM. PT REPORTED FEELING LIKE SHE COULD NOT CATCH HER BREATH. CHARGE NURSE THUAN ABRAHAM CAME IN ROOM, RESPIRATORY THERAPY CALLED AND PT PUT ON BIPAP, SETTINGS 12/8 AT 75% FIO2. PT WAS NOT TOLERATING WELL INITIALLY AND REQUESTED A BREAK FROM MASK. MASK NOW IN PLACE, SEE EMAR FOR TREATMENT OF AIR HUNGER AND ANXIETY. SPO2 AT 98% AND PT APPEARS TO BE TOLERATING WELL, LIGHTS DIMMED TO PROVIDE THERAPEUTIC ENVIRONMENT. CHARGE NURSE THUAN ALSO DISCUSSED CODE STATUS WITH PATIENT AND PT EXPRESSED NOT WANTING CPR OR INTUBATION INTERVENTIONS. WILL CONTINUE TO PROVIDE THERAPEUTIC INTERVENTIONS TO FACILITATE BIPAP TOLERANCE. CALL LIGHT IS IN REACH, PT NOW APPEARS TO BE SLEEPING.
[2021-11-09 15:20] LABS: PCO2 Arterial 44.1 mmHg (35-45); PO2 Arterial 97.7 mmHg (80-100); pH Blood Arterial 7.37 (7.35-7.45)
--- NOTE | 2021-11-09 18:00 | NUR ---
SHIFT SUMMARY PT IS ALERT AND ORIENTED X4, SHE ANSWERS QUESTIONS APPROPRIATELY BUT IS HARD OF HEARING AND HAS A HOARS VOICE. PT DOES NOT APPEAR CONFUSED BUT WILL REMOVE AIRVO WHEN SHE FIRST WAKES FROM SLEEPING AND WILL DESATURATE TO LOW 80'S. SHE REPORTED FEELINGS OF ANXIETY DURING THIS SHIFT WELL SHORTNESS OF BREATH, SEE PRIVIOUS NOTE ABOUT RESPIRATORY CARE. PT NOW ON AIRVO, 50L/MIN AT 75% FIO2 AND SATURATIONS ARE AT 98%. THIS NURSE COMMUNICATED TO MALTHOUSE LABORER THUAN ABRAHAM ABOUT CONCERN OF PT TAKING OF AIRVO AND DESATING. WILL ALSO PASS ONTO NIGHT RN. HR HAS BEEN SR/ST 90'S-110'S, AND PT HAS REMAINED AFEBRILE. SHE HAS DENIED FEELINGS OF PAIN WELL NAUSEA AND VOMITTING DURING SHIFT. SANHCEZ CATHETER IS IN PLACE AND DRAINING WITH GRAVITY LIGHT YELLOW OUTPUT. HEPARIN DRIP IS INFUSING IN RIGHT AC IV AT 15UNITS/KG/HR PER EMAR ORDERS. THIS NURSE SPOKE WITH ROOSEVELT LUCAS FROM PALLIATIVE CARE AND THERE IS A PLAN FOR PALLIATIVE CARE TO FOLLOW UP WITH PT TOMORROW. CALL LIGHT IS IN REACH, WILL CONTINUE TO MONITOR UNTIL REPORT GIVEN.
--- NOTE | 2021-11-10 00:40 | NUR ---
ANTI-Xa FOR HEPARIN DRIP 0.63 VERIFIED WITH PHARMD VANESSA THAT RESULT IS WITHIN THERAPEUTIC RANGE OF 0.3 -0.7 FOR THIS PATIENT. NO CHANGE TO HEPARIN GTT RATE AT THIS TIME. NEXT ANTI-Xa AT 0530.
--- NOTE | 2021-11-10 05:11 | NUR ---
PT CONTINUES ON HEPARIN GTT FOR PULMONARY EMBOLISM, CURRENTLY INFUSING AT 15 UNITS/KG/HOUR AT 19.5 ML PER HOUR. NEXT ANTI-XA AT 0530. PT CONTINUES ON AIRVO, WITH INTERMITTENT INCREASED WORK OF BREATHING WITH MINIMAL EXERTION (INCLUDING SIMPLY ATTEMPTING TO SPEAK). AIRVO SETTINGS HAVE INCREASED FROM 60 LPM AT 75% FiO2 TO 70 LPM AT 90% FiO2. WITH ANY OXYGEN DESATURATION THE PT HAS A PROLONGED RECOVERY TIME, DROPPING LOW 82% SpO2 AND TAKING LONG 5-10 MINUTES TO RECOVER WITH HYPEROXYGENATION TO 100% AT TIMES. RT OFFERED BIPAP AND PT REFUSED. PRN IV MORPHINE ADMINISTERED FOR AIR HUNGER TIMES 3 DOSES OF 2 MG EACH. PT RESPONDING WELL TO MORPHINE. PT CONTINUES TO HAVE EPISODES OF INTERMITTENT CONFUSION, MAINLY WHEN AWAKING FROM SLEEP. EASILY RE-ORIENTED TO SURROUNDINGS.
[2021-11-10 05:36] LABS: Hematocrit 31.7 % (33.0-51.0); Hemoglobin 9.6 g/dL (11.5-16.0); Mean Corpuscular HGB 30.7 pg (26.0-34.0); Mean Corpuscular HGB Conc 30.3 g/dL (31.5-36.5); Mean Corpuscular Volume 101 fL (80-100); Mean Platelet Volume 10.7 fL (9.1-12.4); NRBC ABSOLUTE 0.02 K/mm3 (0.00-0.02); NRBC Auto 0.1 /100 WBC (0.0-0.2); Platelet Count 183 K/mm3 (150-400); RDW Coefficient Variation 20.9 % (11.7-14.2); RDW Standard Deviation 76.2 fL (35.1-46.3); Red Blood Cell Count 3.13 M/mm3 (3.80-5.20); White Blood Cell Count 14.66 K/mm3 (4.00-11.30)
[2021-11-10 05:57] LABS: Anion Gap 5 mmol/L (6-16); Blood Urea Nitrogen 27 mg/dL (8-24); Bun/Creatinine Ratio 33.7 (12.0-20.0); CO2, Blood 27 mmol/L (21-32); Calcium, Blood 8.4 mg/dL (8.5-10.1); Chloride, Blood 113 mmol/L (98-108); Glomerular Filtration Rate >60 (60-); Glucose, Blood 185 mg/dL (70-99); Potassium, Blood 3.9 mmol/L (3.5-5.5); Sodium, Blood 145 mmol/L (136-145)
[2021-11-10 06:52] LABS: BAND PERCENT MAN 2 % (0-8); BASOPHILS PERCENT MAN 0 % (0-2); EOSINOPHILS PERCENT MAN 0 % (0-6); LYMPHOCYTES ABSOLUTE MAN 1.46 K/mm3 (0.84-5.20); LYMPHOCYTES PERCENT MAN 10 % (21-46); MONOCYTES ABSOLUTE MAN 0.58 K/mm3 (0.16-1.47); MONOCYTES PERCENT MAN 4 % (4-13); SEG NEUTROPHILS PERCENT MAN 84 % (41-73); TOTAL CELLS COUNTED 100
--- NOTE | 2021-11-10 12:30 | NUR ---
Pt worsening and struggling, physician in to see pt. son notified of change wanted us to wait until he can get here tomorrow. Charge nurse notified son of pt cant wait. comfort care started for pt. son is aware. jayant called to pt.
--- NOTE | 2021-11-10 14:43 | NUR ---
Spiritual care visit conducted. Patient is transitioning, pulling at her bipap mask and shaking head "no." Patient's mask is removed, I provide a prayer and hold patient's hand, she has a couple minutes of gasps for air then is extremely peaceful. Her son, Brodie is contacted by contingents supervisor Jes and he talks to his mother as the phone is put up to her ear. As soon as that conversation is over pt's neightbor Charmaine, arrives she tells pt of her love and the love of others that they know and then pt expires. I provide grief support to Charmaine. Palliative care RN Tereza Stanton gives Charmaine info for follow-up grief support.
--- NOTE | 2021-11-10 15:44 | NUR ---
assited with care. pt transitioned to comfort only. pt friend nataly in to see pt. With sons permission nataly was given the pt purse and her two gold tone rings and a pair of white stone earings. gave abby our number to give to son for aftercare support. He is flying in tomorrow and alexander will pick him up at airport.
--- NOTE | 2021-11-10 16:04 | NUR ---
FINAL DISCHARGE: PT O2 SATURATIONS DECLINE T/OUT THE MORNING DESPITE PRN MEDICATION AND PT CHANGING TO BIPAP FOR O2 DELIVERY. PT WAS ALREADY DNR STATUS, PHYSICIAN EVALUATED PT AT BEDSIDE THEN CONTACTED PT'S SON (ERIC) AND PT WAS TRANSFERED TO COMFORT CARE. BIPAP MASK REMOVED PER PT REQUEST W/PASTORAL CARE, PALLIATIVE CARE, CHARGE NURSE AND THIS RN AT BEDSIDE. PT'S FRIEND, TRE, ARRIVES TO BEDSIDE IN TIME TO SIT WITH PT. SEE FINAL DISCHARGE INSTRUCTIONS FOR DETAILS. BELONGINGS HAVE BEEN SENT HOME WITH TRE, SON ERIC IS AWARE. CHAPFLY ARRIVES FOR PT.
--- NOTE | 2021-11-11 10:23 | NUR ---
Follow-up bereavement call made to pt's son, Melvin. I conducted a life review, and provide grief support and gentle service counselor. I will continue to remain available for bereavement aide.
== END 2021-11-10 15:51 | DRG 175 ==
LOC: ER 00:46 → PCU 02:38
PROVIDERS: Internal Medicine; Student in an Organized Health Care Education/Training Program; ADMIT Internal Medicine
PROC: 5A09357 Assistance with Respiratory Ventilation, Less than 24 Consecutive Hours, Continuous Positive Airway Pressure (ICD-10-PCS; principal; 2021-11-10)
DX: I26.99 Other pulmonary embolism without acute cor pulmonale (principal); J96.01 Acute respiratory failure with hypoxia; J18.9 Pneumonia, unspecified organism; J44.0 Chronic obstructive pulmonary disease with (acute) lower respiratory infection; C34.90 Malignant neoplasm of unspecified part of unspecified bronchus or lung; Z66 Do not resuscitate; Z51.5 Encounter for palliative care; C79.51 Secondary malignant neoplasm of bone; Z20.822 Contact with and (suspected) exposure to COVID-19; J84.112 Idiopathic pulmonary fibrosis; J38.00 Paralysis of vocal cords and larynx, unspecified; R49.0 Dysphonia; R82.90 Unspecified abnormal findings in urine; F41.9 Anxiety disorder, unspecified; I10 Essential (primary) hypertension; E78.5 Hyperlipidemia, unspecified; K21.9 Gastro-esophageal reflux disease without esophagitis; F32.A Depression, unspecified; I25.10 Atherosclerotic heart disease of native coronary artery without angina pectoris; Z79.82 Long term (current) use of aspirin; Z28.21 Immunization not carried out because of patient refusal; D63.0 Anemia in neoplastic disease; Z79.899 Other long term (current) drug therapy; Z95.5 Presence of coronary angioplasty implant and graft; Z79.02 Long term (current) use of antithrombotics/antiplatelets; Z92.21 Personal history of antineoplastic chemotherapy; Z92.3 Personal history of irradiation; Z79.52 Long term (current) use of systemic steroids; Z87.891 Personal history of nicotine dependence
CPT/HCPCS: 0241U; 36415; 36600; 71045; 71260; 80048; 80053; 81001; 82803; 83735; 83880; 84145; 84484; 85025; 85520; 85610; 87070; 87077; 87086; 87186; 87205; 93005; 93010; 94640; 94660; 94762; 96365; 96374; 96376; 99285-25; A9270; J0456; J0696; J1644; J2060; J2270; J2543; J2920; J2930; J7030; J7050; Q9967